=== PATIENT | female | born 1980 | race Caucasian/White ===

== ENCOUNTER 2024-03-12 20:58 | Observation (INO) ==
--- NOTE | 2024-03-12 21:28 | Emergency Department Note ---
Impression & Plan Stroke-like symptom ED Provider Note NAME: BEATRIZ PATE AGE: 43 SEX: F : 1980 ARRIVES VIA: Walk-In INFORMANT: Patient, ED PROVIDER(S): Shad Adair DO CHIEF COMPLAINT: Strokelike symptoms HPI: The patient is a 43-year-old female who presented to the emergency department for strokelike symptoms. The patient states that she was at dinner at approximately 7 PM this evening. She started noticing a tightness and a numbness in her left upper extremity. She also noticed a slight headache on the top of her head. She denies having any chest pain or difficulty breathing. She did note some nausea. She has a strong history of central nervous system issues in the past. She had a stroke during angiogram in the past. She also has a history of an AV malformation in the right internal carotid or aneurysm. She does have a history of hypertension. The patient denies having any recent illnesses or GI bleeding. She denies having any black or tarry stools. ROS: See above HPI for pertinent positives & negatives. A total of 10 systems reviewed and were otherwise negative. PAST MEDICAL HISTORY: See Below PAST SURGICAL HISTORY: See Below FAMILY HISTORY: See Below SOCIAL HISTORY: See Below HOME MEDICATIONS: See Below ALLERGIES: See Below VITALS: See Below PHYSICAL EXAMINATION: GENERAL: Patient is awake alert in no acute distress patient is resting comfortably and showing no signs of anxiety EYES: The conjunctivae are clear. The pupils are round and reactive. EARS, NOSE, MOUTH AND THROAT: The nose is without any evidence of any deformity. NECK: The neck is nontender and supple. RESPIRATORY: Normal respiratory effort is noted there is no evidence of wheezing rhonchi or rales CARDIOVASCULAR: Regular rate and rhythm noted there no murmurs rubs or gallops normal S1 normal S2. GASTROINTESTINAL: The abdomen is soft. Abdomen is nontender. MUSCULOSKELETAL/EXTREMITIES: There is no evidence of gross deformity full range of motion is noted in the hips and shoulders. SKIN: There is no obvious evidence of any rash. There are no petechiae, pallor or cyanosis noted. NEUROLOGIC: Patient is awake alert and oriented x3 strength is symmetric patellar reflexes are 2+ bilaterally. There is no drift in the upper extremities. Director Of [employer] strength was symmetric in both upper extremities. There is no facial droop. Speech was clear. MEDICAL DECISION MAKING: The patient is a 43-year-old female who presented to the emergency department for an evaluation of strokelike symptoms. The patient has a very significant neurologic history which includes cerebral vascular aneurysm as well as an AVM. The patient was treated with surgery in the past. She has a STAFFING CONSULTANT shunt. The patient had a reassuring exam her symptoms were very acute so she was made a stroke alert after my evaluation. I discussed patient's laboratory and radiographic studies with her. I discussed her condition with the [facility] telestroke neurologist. At this time she does not appear to meet any specific criteria for TNK and in fact given her past medical history she would not likely be a good candidate for this medication. She has no large vessel occlusion. She does still has some ongoing symptoms. For this reason I discussed her condition with the on-call [facility] hospitalist. They have agreed to evaluate the patient in the emergency department for further management and disposition. Triage Nursing notes reviewed. Prior medical records reviewed Vital Signs: reviewed and remarkable for initial hypertension. Differential diagnosis: Infection, dehydration, metabolic abnormality, hypo/hyperglycemia, electrolyte disturbance, anemia, hypoxia, cardiac sources, intracerebral event, toxicologic, neurologic, as well as other pathologies. ER treatment provided: See below Diagnostics interpreted by me: ECG: EKG was obtained in the emergency department. My interpretation is sinus tachycardia at 102 bpm. There is no ectopy. There is no acute ST segment abnormalities noted. No previous tracing was available. Cardiac Monitoring: An order was placed for continuous cardiac monitoring. The monitor shows a rate of 83 bpm with sinus rhythm. Laboratory studies: As stated above and show below. Imaging studies: See below. Radiographic imaging was reviewed by myself Consultation(s): I discussed this case with Dr. Taylor who is on-call for the [facility] telestroke neurology group. I discussed this case with Dr. Shirley [facility] ED COURSE: Procedures: none Critical Care: I have personally spent greater than 35 minutes of critical care time in the direct management of this patient. This includes bedside care, interpretation of diagnostic studies, and testing, discussion with consultants, patient, and family members, and other required patient management activities. This 35 minutes is in excess of all separately billable procedures. Past Med/Surg History Problem List (Updated 03/12/24 @ 22:35 by Shad Adair DO) Stroke-like symptom (Acute) Medical History (Updated 03/12/24 @ 22:35 by Shad Adair DO) Cerebral aneurysm Chronic hypertension Right internal carotid artery aneurysm History of arteriovenous malformation (AVM) Social History Smoking Status: Never smoker Feels Safe at Home: Yes Allergies Allergies Allergy/AdvReac Type Severity Reaction Status Date / Time shrimp Allergy Severe LIPS Verified 03/12/24 22:15 SWELLED/RASH ON NECK Home Meds Home Medications Medication Instructions Recorded Confirmed amlodipine 5 mg tablet 5 mg PO DAILY 03/12/24 03/12/24 aspirin 81 mg tablet,delayed 81 mg PO DAILY 03/12/24 03/12/24 release atorvastatin 10 mg tablet 10 mg PO HS 03/12/24 03/12/24 biotin 10 mg tablet 10 mg PO DAILY 03/12/24 03/12/24 bupropion HCl 100 mg tablet,12 hr 100 mg PO DAILY 03/12/24 03/12/24 sustained-release (Wellbutrin SR) collagen,hydrolysate 500 mg-biotin 1 cap PO DAILY 03/12/24 03/12/24 800 mcg-ascorbic acid 50 mg capsule etonogestrel 0.12 mg-ethinyl 1 vag ring vaginal DIRECTED 03/12/24 03/12/24 estradiol 0.015 mg/24 hr vaginal ring (NuvaRing) hydroxyzine HCl 25 mg tablet 25 mg PO QID PRN Anxiety 03/12/24 03/12/24 lacosamide 100 mg tablet 100 mg PO BID 03/12/24 03/12/24 sertraline 25 mg tablet 12.5 mg PO DAILY 03/12/24 03/12/24 Results & Data (ED) Vital Signs Vital Signs - 24 hr 03/12/24 21:01 03/12/24 21:18 03/12/24 21:19 Temperature 36.2 C L Temperature Source Temporal Artery Scan Pulse Rate 87 96 H 91 H Pulse Rate from SpO2 Sensor 93 H Pulse Rhythm Regular Pulse Strength Normal Respiratory Rate 20 Respiratory Effort / Characteristics Non-Labored Spontaneous Respiratory Depth Normal Blood Pressure 166/114 H 165/108 H Blood Pressure Mean 131 127 Blood Pressure Position Sitting Pulse Oximetry 100 98 Oxygen Delivery Method Room Air Sepsis Recent Fever Within 48 Hours No Sepsis New/Unexplained Change in Mental Status N/A Sepsis Action Taken by Nursing No Action Required 03/12/24 22:03 Temperature Temperature Source Pulse Rate 83 Pulse Rate from SpO2 Sensor 81 Pulse Rhythm Pulse Strength Respiratory Rate 19 Respiratory Effort / Characteristics Respiratory Depth Blood Pressure 134/96 Blood Pressure Mean 108 Blood Pressure Position Pulse Oximetry 98 Oxygen Delivery Method Sepsis Recent Fever Within 48 Hours Sepsis New/Unexplained Change in Mental Status Sepsis Action Taken by Half-Way Medications Current Medication List: was personally reviewed by me Laboratory Data Attestation: I reviewed the patient's lab results. 03/12/24 21:16 03/12/24 21:16 Lab Results 03/12/24 03/12/24 03/12/24 Range/Units 21:16 21:21 21:25 WBC 8.74 (4.8-10.8) K/ul RBC 4.70 (4.20-5.40) M/uL Hgb 13.7 (12.0-16.0) g/dl POC Hgb 12.9 (12.0-16.0) g/dl Hct 40.6 (37.0-47.0) % POC Hct 38 (37-47) % MCV 86.4 (80.0-100.0) fL MCH 29.1 (25.0-34.0) pg MCHC 33.7 (32.0-36.0) g/dL RDW Std Deviation 41.2 (36.4-46.3) fL RDW Coeff of Sandy 13.1 (11.5-14.5) % Plt Count 250 (130-400) K/uL MPV 9.6 (9.4-12.4) fL Immature Gran % (Auto) 0.2 % Neut % (Auto) 56.5 % Lymph % (Auto) 31.9 % Pratt % (Auto) 8.6 % Eos % (Auto) 2.3 % Baso % (Auto) 0.5 % Neut # (Auto) 4.94 (1.40-6.50) K/uL Lymph # (Auto) 2.79 (1.20-3.40) K/uL Pratt # (Auto) 0.75 H (0.11-0.59) K/uL Eos # (Auto) 0.20 (0.00-0.50) K/uL Baso # (Auto) 0.04 (0.00-0.20) K/uL Immature Gran # (Auto) 0.02 (0.01-0.20) K/uL PT 9.8 (9.0-12.0) Seconds INR 0.9 (0.9-1.1) APTT 24 (21-31) Seconds PTT Ratio 0.9 POC Sodium 140 (135-144) mmol/L Sodium 139 (136-145) mmol/L POC Potassium 3.5 (3.3-5.0) mmol/L Potassium 3.5 (3.5-5.1) mmol/L POC Chloride 105 (101-112) mmol/L Chloride 104 (98-107) mmol/L Carbon Dioxide 26 (21-32) mmol/L POC Total CO2 26 (24-31) mmol/L Anion Gap 9 (3-11) POC Anion Gap 13.0 L (16-25) mmol/L POC BUN 11 (7-18) mg/dl BUN 13 (6-23) mg/dl Creatinine 0.79 (0.6-1.2) mg/dl POC Creatinine 0.7 (0.6-1.3) mg/dl Est Cr Clr Drug Dosing 92.1 ml/min Est GFR ( Amer) 107.8 ml/min Est GFR (Non-Af Amer) 93.0 ml/min BUN/Creatinine Ratio 16.5 (10-20) Glucose 105 H (70-99(Fasting)) mg/dl POC Glucose 124 H (70-99) mg/dl POC Glucose (other) 103 H (70-99) mg/dl Calcium 9.5 (8.6-10.3) mg/dl POC Ioniz Calcium Deja 1.20 (1.12-1.32) mmol/l Magnesium 1.9 (1.7-2.4) mg/dl Total Bilirubin 0.3 (0.2-1.0) mg/dl AST 18 (13-39) U/L ALT 20 (7-52) U/L Alkaline Phosphatase 55 (34-104) U/L Troponin I High Sens 2.5 (0-14) pg/ml Total Protein 7.7 (6.0-8.3) gm/dl Albumin 4.4 (3.4-5.0) gm/dl Globulin 3.3 (2.5-4.0) gm/dl Albumin/Globulin Ratio 1.3 (0.9-2) HCG, Quant < 1 mIU/ml Administered Medications Discontinued Medications Ioversol (Optiray 320 150ml) 120 ml IV ONCE ONE Stop: 03/12/24 21:29 Last Admin: 03/12/24 21:29 Dose: 120 ml Documented By: JAMSHID Imaging Data Attestation: I personally reviewed and interpreted this imaging study as follows: My Impression: CT of the brain was obtained in the emergency department. My interpretation is no intracranial hemorrhage, STAFFING CONSULTANT shunt was noted, final report below. 1 view chest x-ray was obtained in the emergency department. My interpretation is no free air or definite infiltrate, final report below. Radiologist's Impression: Head CT 03/12/24 21:21 CR Exam(s): CT HEAD Without Contrast EXAM: CT Head Without Intravenous Contrast CLINICAL HISTORY: Reason for exam: neuro deficit, acute stroke suspected. TECHNIQUE: Axial computed tomography images of the head/brain without intravenous contrast. CTDI is 47.66 mGy and DLP is 774.27 mGy-cm. Automated exposure control was utilized for the study. A dose lowering technique was utilized adhering to the principles of ALARA. COMPARISON: No relevant prior studies available. FINDINGS: Brain: There is an approximately 6 cm area of encephalomalacia in the right parietal and occipital lobe with surrounding gliosis consistent with old infarct or surgical resection. No acute large vessel infarct or intracranial hemorrhage is seen. Ventricles: There is a left frontal ventriculostomy extending to the lateral ventricle per the ventricular system is nondilated. Bones/joints: Previous right frontotemporal parietal craniotomy. There is an aneurysm clip at the base of the brain as well as an embolization coil and a metallic stent extending into the proximal posterior cerebral artery on the right. No acute fracture. Soft tissues: Unremarkable. Sinuses: Unremarkable as visualized. No acute sinusitis. Mastoid air cells: Unremarkable as visualized. No mastoid effusion. IMPRESSION: 1. There is an approximately 6 cm area of encephalomalacia in the right parietal and occipital lobe with surrounding gliosis consistent with old infarct or surgical resection. No acute large vessel infarct or intracranial hemorrhage is seen. 2. Previous right frontotemporal parietal craniotomy. There is an aneurysm clip at the base of the brain as well as an adjacent embolization coil and a metallic stent extending into the proximal posterior cerebral artery on the right. Communications: Call Doctor Stroke Electronically signed by: Elliot Ocampo MD 03/12/24 21:48 PM Head CTA 03/12/24 21:21 CR Exam(s): CTA HEAD With Contrast IV Amt: 120ML OPITRAY 320 EXAM: CT Angiography Head With Intravenous Contrast CLINICAL HISTORY: Reason for exam: neuro deficit, acute stroke suspected. TECHNIQUE: Axial computed tomographic angiography images of the head with intravenous contrast. CTDI is 10.38 mGy and DLP is 5.19 mGy-cm. Automated exposure control was utilized for the study. A dose lowering technique was utilized adhering to the principles of ALARA. MIP reconstructed images were created and reviewed. CONTRAST: Patient received 120ML OPTIRAY 320 of IV contrast COMPARISON: No relevant prior studies available. FINDINGS: Right internal carotid artery: Embolization coils adjacent to the distal right internal carotid artery. There is an aneurysm clip adjacent to the distal right internal carotid artery and anterior communicating artery. Right anterior cerebral artery: See above. Right middle cerebral artery: Unremarkable. No occlusion or significant stenosis. No aneurysm. Right posterior cerebral artery: Metallic stent in the proximal right posterior cerebral artery. The vessel is obscured and likely chronically occluded. No aneurysm. Right vertebral artery: Unremarkable as visualized. Left internal carotid artery: No acute findings. Intracranial segment is patent with no significant stenosis. No aneurysm. Left anterior cerebral artery: Unremarkable. No occlusion or significant stenosis. No aneurysm. Left middle cerebral artery: Unremarkable. No occlusion or significant stenosis. No aneurysm. Left posterior cerebral artery: Unremarkable. No occlusion or significant stenosis. No aneurysm. Left vertebral artery: Unremarkable as visualized. Basilar artery: Unremarkable. No occlusion or significant stenosis. No aneurysm. Bones/joints: Previous right-sided craniotomy. IMPRESSION: 1. Embolization coils adjacent to the distal right internal carotid artery. No residual or recurrent aneurysm is seen. 2. There is an aneurysm clip adjacent to the distal right internal carotid artery and anterior communicating artery. 3. Previous right-sided craniotomy. 4. Metallic stent in the proximal right posterior cerebral artery. The vessel is obscured and likely chronically occluded. No acute appearing large vessel occlusion is identified. Communications: Call Doctor Stroke Electronically signed by: Elliot Ocampo MD 03/12/24 21:59 PM Neck CTA 03/12/24 21:21 CR Exam(s): CTA NECK With Contrast IV Amt: 120ML OPTIRAY 320 EXAM: CT Angiography Neck With Intravenous Contrast CLINICAL HISTORY: Reason for exam: neuro deficit, acute stroke suspected. TECHNIQUE: Routine carotid CT angiography protocol was performed with intravenous contrast. NASCET criteria using the distal ICAs for comparison were used for evaluation of stenoses. CTDI is 12.29 mGy and DLP is 433.9 mGy-cm. Automated exposure control was utilized for the study. A dose lowering technique was utilized adhering to the principles of ALARA. MIP reconstructed images were created and reviewed. CONTRAST: Patient received 120ML OPTIRAY 320 of IV contrast COMPARISON: None. FINDINGS: VASCULATURE: Right common carotid artery: Unremarkable. No occlusion or significant stenosis. No dissection. Right internal carotid artery: Unremarkable. Extracranial segment is patent with no occlusion or significant stenosis. No dissection. Right external carotid artery: Unremarkable. No occlusion. Right vertebral artery: Unremarkable. No occlusion or significant stenosis. No dissection. Left common carotid artery: Unremarkable. No occlusion or significant stenosis. No dissection. Left internal carotid artery: Trace amount of noncalcified plaque in the left carotid bulb with less than 20% stenosis. No dissection. Left external carotid artery: Unremarkable. No occlusion. Left vertebral artery: Unremarkable. No occlusion or significant stenosis. No dissection. NECK: Bones/joints: Unremarkable. No acute fracture. Soft tissues: Unremarkable. Lung apices: Clear. CAROTID STENOSIS REFERENCE USING NASCET CRITERIA: % ICA stenosis = (1 - narrowest ICA diameter/diameter of distal cervical ICA) x 100. Mild - <50% stenosis. Moderate - 50-69% stenosis. Severe - 70-94% stenosis. Near occlusion - 95-99% stenosis. Occluded - 100% stenosis. IMPRESSION: No acute findings in the arteries of the neck. Communications: Call Doctor Stroke Electronically signed by: Elliot Ocampo MD 03/12/24 21:55 PM Discharge Plan Visit Data Chief Complaint: TIA Symptoms Stated Complaint: TINGLING IN LT ARM/LT SIDE FACE, DISORIENTED ED Provider: Shad Adair Discharge Problem: Stroke-like symptom Patient Disposition: Being Evaluated by Hospitalist Forms Stand Alone Forms: My [facility] Prescriptions Prescriptions: No Action biotin 10 mg Tablet 10 mg PO DAILY atorvastatin 10 mg Tablet 10 mg PO HS amlodipine 5 mg Tablet 5 mg PO DAILY aspirin 81 mg Tablet,Delayed Release (Dr/Ec) 81 mg PO DAILY bupropion HCl [Wellbutrin SR] 100 mg Tablet Sustained-Release 12 Hr 100 mg PO DAILY sertraline 25 mg Tablet 12.5 mg PO DAILY etonogestrel-ethinyl estradiol [NuvaRing] 0.12-0.015 mg/24 hr Ring 1 vag ring VAGINAL DIRECTED fkzpvlbg-[id number]-[id number] acid 500 mg-800 mcg- 50 mg Capsule 1 cap PO DAILY lacosamide 100 mg Tablet 100 mg PO BID hydroxyzine HCl 25 mg tablet 25 mg PO QID PRN (Reason: Anxiety) Rx Instructions: PER PT "USUALLY TAKE AT HS EVERY NIGHT". Referrals Referrals: PCP,NO [Physician] -
[2024-03-12] MEDS: OPTIRAY 320 150ml IV ONE (21:29)
[2024-03-12 21:37] LABS: Basophils # (auto) 0.04 K/uL (0.00-0.20); Basophils % (auto) 0.5 %; Eosinophils % (auto) 2.3 %; Hematocrit (blood only) 40.6 % (37.0-47.0); Hemoglobin 13.7 g/dl (12.0-16.0); Immature Granulocytes # (auto) 0.02 K/uL (0.01-0.20); Immature Granulocytes % (auto) 0.2 %; Lymphocytes # (auto) 2.79 K/uL (1.20-3.40); Lymphocytes % (auto) 31.9 %; Mean Corpuscular Hemoglobin 29.1 pg (25.0-34.0); Mean Corpuscular Hgb Conc 33.7 g/dL (32.0-36.0); Mean Corpuscular Volume 86.4 fL (80.0-100.0); Mean Platelet Volume 9.6 fL (9.4-12.4); Monocytes # (auto) 0.75 K/uL (0.11-0.59); Monocytes % (auto) 8.6 %; Neutrophils # (auto) 4.94 K/uL (1.40-6.50); Neutrophils % (auto) 56.5 %; Platelet Count 250 K/uL (130-400); RDW Coefficient of Variation 13.1 % (11.5-14.5); RDW Standard Deviation 41.2 fL (36.4-46.3); White Blood Count 8.74 K/ul (4.8-10.8)
--- NOTE | 2024-03-12 21:49 | CT Scan Report ---
Exam(s): CT HEAD Without Contrast EXAM: CT Head Without Intravenous Contrast CLINICAL HISTORY: Reason for exam: neuro deficit, acute stroke suspected. TECHNIQUE: Axial computed tomography images of the head/brain without intravenous contrast. CTDI is 47.66 mGy and DLP is 774.27 mGy-cm. Automated exposure control was utilized for the study. A dose lowering technique was utilized adhering to the principles of ALARA. COMPARISON: No relevant prior studies available. FINDINGS: Brain: There is an approximately 6 cm area of encephalomalacia in the right parietal and occipital lobe with surrounding gliosis consistent with old infarct or surgical resection. No acute large vessel infarct or intracranial hemorrhage is seen. Ventricles: There is a left frontal ventriculostomy extending to the lateral ventricle per the ventricular system is nondilated. Bones/joints: Previous right frontotemporal parietal craniotomy. There is an aneurysm clip at the base of the brain as well as an embolization coil and a metallic stent extending into the proximal posterior cerebral artery on the right. No acute fracture. Soft tissues: Unremarkable. Sinuses: Unremarkable as visualized. No acute sinusitis. Mastoid air cells: Unremarkable as visualized. No mastoid effusion. IMPRESSION: 1. There is an approximately 6 cm area of encephalomalacia in the right parietal and occipital lobe with surrounding gliosis consistent with old infarct or surgical resection. No acute large vessel infarct or intracranial hemorrhage is seen. 2. Previous right frontotemporal parietal craniotomy. There is an aneurysm clip at the base of the brain as well as an adjacent embolization coil and a metallic stent extending into the proximal posterior cerebral artery on the right. Communications: Call Doctor Stroke Electronically signed by: Elliot Ocampo MD 03/12/24 21:48 PM
[2024-03-12 21:50] LABS: Albumin Globulin Ratio 1.3 (0.9-2); Albumin Level 4.4 gm/dl (3.4-5.0); Bilirubin,Total 0.3 mg/dl (0.2-1.0); Calcium 9.5 mg/dl (8.6-10.3); Globulin 3.3 gm/dl (2.5-4.0); Magnesium 1.9 mg/dl (1.7-2.4); Potassium 3.5 mmol/L (3.5-5.1); Total Protein 7.7 gm/dl (6.0-8.3)
[2024-03-12 21:57] LABS: Troponin I High Sensitivity 2.5 pg/ml (0-14)
--- NOTE | 2024-03-12 21:57 | CT Scan Report ---
Exam(s): CTA NECK With Contrast IV Amt: 120ML OPTIRAY 320 EXAM: CT Angiography Neck With Intravenous Contrast CLINICAL HISTORY: Reason for exam: neuro deficit, acute stroke suspected. TECHNIQUE: Routine carotid CT angiography protocol was performed with intravenous contrast. NASCET criteria using the distal ICAs for comparison were used for evaluation of stenoses. CTDI is 12.29 mGy and DLP is 433.9 mGy-cm. Automated exposure control was utilized for the study. A dose lowering technique was utilized adhering to the principles of ALARA. MIP reconstructed images were created and reviewed. CONTRAST: Patient received 120ML OPTIRAY 320 of IV contrast COMPARISON: None. FINDINGS: VASCULATURE: Right common carotid artery: Unremarkable. No occlusion or significant stenosis. No dissection. Right internal carotid artery: Unremarkable. Extracranial segment is patent with no occlusion or significant stenosis. No dissection. Right external carotid artery: Unremarkable. No occlusion. Right vertebral artery: Unremarkable. No occlusion or significant stenosis. No dissection. Left common carotid artery: Unremarkable. No occlusion or significant stenosis. No dissection. Left internal carotid artery: Trace amount of noncalcified plaque in the left carotid bulb with less than 20% stenosis. No dissection. Left external carotid artery: Unremarkable. No occlusion. Left vertebral artery: Unremarkable. No occlusion or significant stenosis. No dissection. NECK: Bones/joints: Unremarkable. No acute fracture. Soft tissues: Unremarkable. Lung apices: Clear. CAROTID STENOSIS REFERENCE USING NASCET CRITERIA: % ICA stenosis = (1 - narrowest ICA diameter/diameter of distal cervical ICA) x 100. Mild - <50% stenosis. Moderate - 50-69% stenosis. Severe - 70-94% stenosis. Near occlusion - 95-99% stenosis. Occluded - 100% stenosis. IMPRESSION: No acute findings in the arteries of the neck. Communications: Call Doctor Stroke Electronically signed by: Elliot Ocampo MD 03/12/24 21:55 PM
--- NOTE | 2024-03-12 22:00 | CT Scan Report ---
Exam(s): CTA HEAD With Contrast IV Amt: 120ML OPITRAY 320 EXAM: CT Angiography Head With Intravenous Contrast CLINICAL HISTORY: Reason for exam: neuro deficit, acute stroke suspected. TECHNIQUE: Axial computed tomographic angiography images of the head with intravenous contrast. CTDI is 10.38 mGy and DLP is 5.19 mGy-cm. Automated exposure control was utilized for the study. A dose lowering technique was utilized adhering to the principles of ALARA. MIP reconstructed images were created and reviewed. CONTRAST: Patient received 120ML OPTIRAY 320 of IV contrast COMPARISON: No relevant prior studies available. FINDINGS: Right internal carotid artery: Embolization coils adjacent to the distal right internal carotid artery. There is an aneurysm clip adjacent to the distal right internal carotid artery and anterior communicating artery. Right anterior cerebral artery: See above. Right middle cerebral artery: Unremarkable. No occlusion or significant stenosis. No aneurysm. Right posterior cerebral artery: Metallic stent in the proximal right posterior cerebral artery. The vessel is obscured and likely chronically occluded. No aneurysm. Right vertebral artery: Unremarkable as visualized. Left internal carotid artery: No acute findings. Intracranial segment is patent with no significant stenosis. No aneurysm. Left anterior cerebral artery: Unremarkable. No occlusion or significant stenosis. No aneurysm. Left middle cerebral artery: Unremarkable. No occlusion or significant stenosis. No aneurysm. Left posterior cerebral artery: Unremarkable. No occlusion or significant stenosis. No aneurysm. Left vertebral artery: Unremarkable as visualized. Basilar artery: Unremarkable. No occlusion or significant stenosis. No aneurysm. Bones/joints: Previous right-sided craniotomy. IMPRESSION: 1. Embolization coils adjacent to the distal right internal carotid artery. No residual or recurrent aneurysm is seen. 2. There is an aneurysm clip adjacent to the distal right internal carotid artery and anterior communicating artery. 3. Previous right-sided craniotomy. 4. Metallic stent in the proximal right posterior cerebral artery. The vessel is obscured and likely chronically occluded. No acute appearing large vessel occlusion is identified. Communications: Call Doctor Stroke Electronically signed by: Elliot Ocampo MD 03/12/24 21:59 PM
[2024-03-12 22:03] LABS: iSTAT Creatinine 0.7 mg/dl (0.6-1.3); iSTAT Hemoglobin 12.9 g/dl (12.0-16.0); iSTAT Ionized Calcium 1.2 mmol/l (1.12-1.32); iSTAT Potassium 3.5 mmol/L (3.3-5.0)
[2024-03-12 22:14] LABS: INR 0.9 (0.9-1.1); Partial Thromboplastin Ratio 0.9; Partial Thromboplastin Time 24 Seconds (21-31); Prothrombin Time 9.8 Seconds (9.0-12.0)
[2024-03-12 22:53] LABS: BUN Creatinine Ratio 16.5 (10-20); Creatinine Clr Calc Pharmacy 92.1 ml/min; Est GFR (African American) 107.8 ml/min
--- NOTE | 2024-03-13 00:10 | History & Physical Report ---
Date of Service March 12, 2024 Assessment & Plan (1) Stroke-like symptom: Plan: 43-year-old female with past medical history significant for right internal carotid artery aneurysm, chronic hypertension, brain aneurysm, history of seizures, presents with strokelike symptoms. Around 7 PM when she was coming from dinner she noticed some numbness in the Left side of face and left upper extremity. Patient was stroke alert. As symptoms are improving and as has history of aneurysm she was deemed not a TNK candidate. Has mild headache and dizziness. No runny nose or sore throat. No cough. No fever. No difficulty swallowing. Denies any chest pain.Initially was short of breath but currently resolved. Currently no nausea. No abdominal pain. Normal bowel and bladder movements. Ambulating okay per patient. Hemodynamics are okay. 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 She also underwent coiling of a ruptured right posterior communicating aneurysm, flow diversion of the right P1 aneurysm and surgery for clipping of the right anterior communicating aneurysm. She also underwent angiogram and the procedure was completed with postprocedure stroke. She used to follow-up with [facility] but she moved out of the area and current following with [facility] as per patient. Patient states recently in December she had MRI scan. She wants to limit radiation exposure. Patient and her wanted to wait and see if her symptoms completely resolves .If symptoms resolves they don't want MRI scan. If symptoms persist they are okay to get MRI scan. She als o has Shunt and they want to get an x-ray before getting the MRI scan. Strokelike symptom Has numbness in the left side of the face and left upper extremity improving CTA head and neck and CT head chronic findings patient states he recently had MRI scan of the head and want to limit radiation and want to wait and see if her symptoms resolve before deciding about the MRI scan continue home statin and aspirin stroke workup with echo, telemonitoring and neurochecks speech and PT OT evaluation neuroconsult in a.m. for further recommendation close monitor hypertension on amlodipine will reduce dose for now for permissive htn we will monitor seizures on lacosamide anxiety/depression continue home medications DVT prophylaxis SCDs disposition telemetry History of Present Illness Chief Complaint: strokelike symptoms Primary Care Provider: NO PCP 43-year-old female with past medical history significant for right internal carotid artery aneurysm, chronic hypertension, brain aneurysm, history of se izures, presents with strokelike symptoms. Around 7 PM when she was coming from dinner she noticed some numbness in the Left side of face and left upper extremity. Patient was stroke alert. As symptoms are improving and as has history of aneurysm she was deemed not a TNK candidate. Has mild headache and dizziness. No runny nose or sore throat. No cough. No fever. No difficulty swallowing. Denies any chest pain.Initially was short of breath but currently resolved. Currently no nausea. No abdominal pain. Normal bowel and bladder movements. Ambulating okay per patient. Hemodynamics are okay. 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 She also underwent coiling of a ruptured right posterior communicating aneurysm, flow diversion of the right P1 aneurysm and surgery for clipping of the right anterior communicating aneurysm. She also underwent angiogram and the procedure was completed with postprocedure stroke. She used to follow-up with [facility] but she moved out of the area and current following with [facility] as per patient. Patient states recently in December she had MRI scan. She wants to limit radiation exposure. Patient and her wanted to wait and see if her symptoms completely resolves .If symptoms resolves they don't want MRI scan. If symptoms persist they are okay to get MRI scan. She also has Shunt and they want to get an x-ray before getting the MRI scan. past medical history. As mentioned above past surgical history. Craniotomy for complex intracranial aneurysm. Bilateral internal carotid artery catheter placement. Cerebral AVM treated with gamma knife. S/p coiling of the right ICA aneurysm in 2014. craniotomy evaluation of subdural hematoma in 2019. 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 Spinal fluid tap for drainage and April 2020. Vertebral artery catheter placement. Social history.'s states smokes socially. Alcohol socially. Family history. Mother has hypertension. Father has diabetes. Grandmother had ovarian cancer. Maternal aunt had brain aneurysm. Allergies Allergy/AdvReac Type Severity Reaction Status Date / Time shrimp Allergy Severe LIPS Verified 03/12/24 22:15 SWELLED/RASH ON NECK Home Medications Medication Instructions Recorded Confirmed Type amlodipine 5 mg tablet 5 mg PO DAILY 03/12/24 03/12/24 History aspirin 81 mg tablet,delayed 81 mg PO DAILY 03/12/24 03/12/24 History release atorvastatin 10 mg tablet 10 mg PO HS 03/12/24 03/12/24 History biotin 10 mg tablet 10 mg PO DAILY 03/12/24 03/12/24 History bupropion HCl 100 mg tablet,12 hr 100 mg PO DAILY 03/12/24 03/12/24 History sustained-release (Wellbutrin SR) collagen,hydrolysate 500 mg-biotin 1 cap PO DAILY 03/12/24 03/12/24 History 800 mcg-ascorbic acid 50 mg capsule etonogestrel 0.12 mg-ethinyl 1 vag ring vaginal DIRECTED 03/12/24 03/12/24 History estradiol 0.015 mg/24 hr vaginal ring (NuvaRing) hydroxyzine HCl 25 mg tablet 25 mg PO QID PRN Anxiety 03/12/24 03/12/24 History lacosamide 100 mg tablet 100 mg PO BID 03/12/24 03/12/24 History sertraline 25 mg tablet 12.5 mg PO DAILY 03/12/24 03/12/24 History Past Med/Surg History Problem List (Updated 03/12/24 @ 22:35 by Shad Adair DO) Stroke-like symptom (Acute) Medical History (Updated 03/12/24 @ 22:35 by Shad Adair DO) Cerebral aneurysm Chronic hypertension Right internal carotid artery aneurysm History of arteriovenous malformation (AVM) Social History Smoking Status: Current every day smoker Tobacco Type: Cigarettes Second Hand Exposure: No; Do You Dip or Chew Tobacco: No; Tobacco Cessation Education Requested by Patient: No Hx Alcohol Use: Yes Alcohol type: beer Hx Substance Use: No Preferred Language: Khmer Assembler Skylights Required: No Beliefs That Will Affect Care: None Current Living Situation: Family Other Information That Helps Us Care for You: No Feels Safe at Home: Yes Safety Concerns: Feels Safe At This Time Assistive Devices: None Review of Systems Review of Systems: All systems reviewed & are unremarkable except as noted in HPI & below Physical Exam Physical Exam: General- Not in distress Head- atraumatic Eyes- PERRL, EOMI. ENT- oropharynx clear Neck- supple, no JVD. Lungs- clear to auscultation no wheezing or crackles. Heart- regular rate and rhythm; no murmur, no gallop. Abdomen- normal bowel sounds, soft, nontender, no distension. Extremities- no pretibial edema, no erythema seen Neuro- alert, oriented PERRL, EOMI; no facial palsy; no dysarthria; motor 5/5 bilaterally; no pronator drift, normal heel to tomlin test, sensations intact, position sense intact. Skin- warm & dry Results & Data Results & Data Vital Signs (Past 12 Hours) Vital Signs Temp Pulse Resp BP Pulse Ox O2 Del Method 03/12/24 22:03 83 19 134/96 98 03/12/24 21:19 91 H 03/12/24 21:18 96 H 165/108 H 98 03/12/24 21:01 36.2 C L 87 20 166/114 H 100 Room Air Diagnostic Findings Laboratory Results WBC 8.74 K/ul (4.8-10.8) 03/12/24 21:16 RBC 4.70 M/uL (4.20-5.40) 03/12/24 21:16 Hgb 13.7 g/dl (12.0-16.0) 03/12/24 21:16 POC Hgb 12.9 g/dl (12.0-16.0) 03/12/24 21:25 Hct 40.6 % (37.0-47.0) 03/12/24 21:16 POC Hct 38 % (37-47) 03/12/24 21:25 MCV 86.4 fL (80.0-100.0) 03/12/24 21:16 MCH 29.1 pg (25.0-34.0) 03/12/24 21:16 MCHC 33.7 g/dL (32.0-36.0) 03/12/24 21:16 RDW Std Deviation 41.2 fL (36.4-46.3) 03/12/24 21:16 RDW Coeff of Sandy 13.1 % (11.5-14.5) 03/12/24 21:16 Plt Count 250 K/uL (130-400) 03/12/24 21:16 MPV 9.6 fL (9.4-12.4) 03/12/24 21:16 Immature Gran % (Auto) 0.2 % 03/12/24 21:16 Neut % (Auto) 56.5 % 03/12/24 21:16 Lymph % (Auto) 31.9 % 03/12/24 21:16 Merrick % (Auto) 8.6 % 03/12/24 21:16 Eos % (Auto) 2.3 % 03/12/24 21:16 Baso % (Auto) 0.5 % 03/12/24 21:16 Neut # (Auto) 4.94 K/uL (1.40-6.50) 03/12/24 21:16 Lymph # (Auto) 2.79 K/uL (1.20-3.40) 03/12/24 21:16 Merrick # (Auto) 0.75 K/uL (0.11-0.59) H 03/12/24 21:16 Eos # (Auto) 0.20 K/uL (0.00-0.50) 03/12/24 21:16 Baso # (Auto) 0.04 K/uL (0.00-0.20) 03/12/24 21:16 Immature Gran # (Auto) 0.02 K/uL (0.01-0.20) 03/12/24 21:16 PT 9.8 Seconds (9.0-12.0) 03/12/24 21:16 INR 0.9 (0.9-1.1) 03/12/24 21:16 APTT 24 Seconds (21-31) 03/12/24 21:16 PTT Ratio 0.9 03/12/24 21:16 POC Sodium 140 mmol/L (135-144) 03/12/24 21:25 Sodium 139 mmol/L (136-145) 03/12/24 21:16 POC Potassium 3.5 mmol/L (3.3-5.0) 03/12/24 21:25 Potassium 3.5 mmol/L (3.5-5.1) 03/12/24 21:16 POC Chloride 105 mmol/L (101-112) 03/12/24 21:25 Chloride 104 mmol/L (98-107) 03/12/24 21:16 Carbon Dioxide 26 mmol/L (21-32) 03/12/24 21:16 POC Total CO2 26 mmol/L (24-31) 03/12/24 21:25 Anion Gap 9 (3-11) 03/12/24 21:16 POC Anion Gap 13.0 mmol/L (16-25) L 03/12/24 21:25 POC BUN 11 mg/dl (7-18) 03/12/24 21:25 BUN 13 mg/dl (6-23) 03/12/24 21:16 Creatinine 0.79 mg/dl (0.6-1.2) 03/12/24 21:16 POC Creatinine 0.7 mg/dl (0.6-1.3) 03/12/24 21:25 Est Cr Clr Drug Dosing 92.1 ml/min 03/12/24 21:16 Est GFR ( Amer) 107.8 ml/min 03/12/24 21:16 Est GFR (Non-Af Amer) 93.0 ml/min 03/12/24 21:16 BUN/Creatinine Ratio 16.5 (10-20) 03/12/24 21:16 Glucose 105 mg/dl (70-99(Fasting)) H 03/12/24 21:16 POC Glucose 124 mg/dl (70-99) H 03/12/24 21:21 POC Glucose (other) 103 mg/dl (70-99) H 03/12/24 21:25 Calcium 9.5 mg/dl (8.6-10.3) 03/12/24 21:16 POC Ioniz Calcium Djea 1.20 mmol/l (1.12-1.32) 03/12/24 21:25 Magnesium 1.9 mg/dl (1.7-2.4) 03/12/24 21:16 Total Bilirubin 0.3 mg/dl (0.2-1.0) 03/12/24 21:16 AST 18 U/L (13-39) 03/12/24 21:16 ALT 20 U/L (7-52) 03/12/24 21:16 Alkaline Phosphatase 55 U/L (34-104) 03/12/24 21:16 Troponin I High Sens 2.5 pg/ml (0-14) 03/12/24 21:16 Total Protein 7.7 gm/dl (6.0-8.3) 03/12/24 21:16 Albumin 4.4 gm/dl (3.4-5.0) 03/12/24 21:16 Globulin 3.3 gm/dl (2.5-4.0) 03/12/24 21:16 Albumin/Globulin Ratio 1.3 (0.9-2) 03/12/24 21:16 HCG, Quant < 1 mIU/ml 03/12/24 21:[address] 03/12/24 21:21 CR Exam(s): CT HEAD Without Contrast EXAM: CT Head Without Intravenous Contrast CLINICAL HISTORY: Reason for exam: neuro deficit, acute stroke suspected. TECHNIQUE: Axial computed tomography images of the head/brain without intravenous contrast. CTDI is 47.66 mGy and DLP is 774.27 mGy-cm. Automated exposure control was utilized for the study. A dose lowering technique was utilized adhering to the principles of ALARA. COMPARISON: No relevant prior studies available. FINDINGS: Brain: There is an approximately 6 cm area of encephalomalacia in the right parietal and occipital lobe with surrounding gliosis consistent with old infarct or surgical resection. No acute large vessel infarct or intracranial hemorrhage is seen. Ventricles: There is a left frontal ventriculostomy extending to the lateral ventricle per the ventricular system is nondilated. Bones/joints: Previous right frontotemporal parietal craniotomy. There is an aneurysm clip at the base of the brain as well as an embolization coil and a metallic stent extending into the proximal posterior cerebral artery on the right. No acute fracture. Soft tissues: Unremarkable. Sinuses: Unremarkable as visualized. No acute sinusitis. Mastoid air cells: Unremarkable as visualized. No mastoid effusion. IMPRESSION: 1. There is an approximately 6 cm area of encephalomalacia in the right parietal and occipital lobe with surrounding gliosis consistent with old infarct or surgical resection. No acute large vessel infarct or intracranial hemorrhage is seen. 2. Previous right frontotemporal parietal craniotomy. There is an aneurysm clip at the base of the brain as well as an adjacent embolization coil and a metallic stent extending into the proximal posterior cerebral artery on the right. Communications: Call Doctor Stroke Electronically signed by: Elliot Ocampo MD 03/12/24 21:48 PM Head CTA 03/12/24 21:21 CR Exam(s): CTA HEAD With Contrast IV Amt: 120ML OPITRAY 320 EXAM: CT Angiography Head With Intravenous Contrast CLINICAL HISTORY: Reason for exam: neuro deficit, acute stroke suspected. TECHNIQUE: Axial computed tomographic angiography images of the head with intravenous contrast. CTDI is 10.38 mGy and DLP is 5.19 mGy-cm. Automated exposure control was utilized for the study. A dose lowering technique was utilized adhering to the principles of ALARA. MIP reconstructed images were created and reviewed. CONTRAST: Patient received 120ML OPTIRAY 320 of IV contrast COMPARISON: No relevant prior studies available. FINDINGS: Right internal carotid artery: Embolization coils adjacent to the distal right internal carotid artery. There is an aneurysm clip adjacent to the distal right internal carotid artery and anterior communicating artery. Right anterior cerebral artery: See above. Right middle cerebral artery: Unremarkable. No occlusion or significant stenosis. No aneurysm. Right posterior cerebral artery: Metallic stent in the proximal right posterior cerebral artery. The vessel is obscured and likely chronically occluded. No aneurysm. Right vertebral artery: Unremarkable as visualized. Left internal carotid artery: No acute findings. Intracranial segment is patent with no significant stenosis. No aneurysm. Left anterior cerebral artery: Unremarkable. No occlusion or significant stenosis. No aneurysm. Left middle cerebral artery: Unremarkable. No occlusion or significant stenosis. No aneurysm. Left posterior cerebral artery: Unremarkable. No occlusion or significant stenosis. No aneurysm. Left vertebral artery: Unremarkable as visualized. Basilar artery: Unremarkable. No occlusion or significant stenosis. No aneurysm. Bones/joints: Previous right-sided craniotomy. IMPRESSION: 1. Embolization coils adjacent to the distal right internal carotid artery. No residual or recurrent aneurysm is seen. 2. There is an aneurysm clip adjacent to the distal right internal carotid artery and anterior communicating artery. 3. Previous right-sided craniotomy. 4. Metallic stent in the proximal right posterior cerebral artery. The vessel is obscured and likely chronically occluded. No acute appearing large vessel occlusion is identified. Communications: Call Doctor Stroke Electronically signed by: Elliot Ocampo MD 03/12/24 21:59 PM Neck CTA 03/12/24 21:21 CR Exam(s): CTA NECK With Contrast IV Amt: 120ML OPTIRAY 320 EXAM: CT Angiography Neck With Intravenous Contrast CLINICAL HISTORY: Reason for exam: neuro deficit, acute stroke suspected. TECHNIQUE: Routine carotid CT angiography protocol was performed with intravenous contrast. NASCET criteria using the distal ICAs for comparison were used for evaluation of stenoses. CTDI is 12.29 mGy and DLP is 433.9 mGy-cm. Automated exposure control was utilized for the study. A dose lowering technique was utilized adhering to the principles of ALARA. MIP reconstructed images were created and reviewed. CONTRAST: Patient received 120ML OPTIRAY 320 of IV contrast COMPARISON: None. FINDINGS: VASCULATURE: Right common carotid artery: Unremarkable. No occlusion or significant stenosis. No dissection. Right internal carotid artery: Unremarkable. Extracranial segment is patent with no occlusion or significant stenosis. No dissection. Right external carotid artery: Unremarkable. No occlusion. Right vertebral artery: Unremarkable. No occlusion or significant stenosis. No dissection. Left common carotid artery: Unremarkable. No occlusion or significant stenosis. No dissection. Left internal carotid artery: Trace amount of noncalcified plaque in the left carotid bulb with less than 20% stenosis. No dissection. Left external carotid artery: Unremarkable. No occlusion. Left vertebral artery: Unremarkable. No occlusion or significant stenosis. No dissection. NECK: Bones/joints: Unremarkable. No acute fracture. Soft tissues: Unremarkable. Lung apices: Clear. CAROTID STENOSIS REFERENCE USING NASCET CRITERIA: % ICA stenosis = (1 - narrowest ICA diameter/diameter of distal cervical ICA) x 100. Mild - <50% stenosis. Moderate - 50-69% stenosis. Severe - 70-94% stenosis. Near occlusion - 95-99% stenosis. Occluded - 100% stenosis. IMPRESSION: No acute findings in the arteries of the neck. Communications: Call Doctor Stroke Electronically signed by: Elliot Ocampo MD 03/12/24 21:55 PM ECG Additional Comments: ECG. Sinus tachycardia rate of 102. No acute ST changes seen. Code Status & VTE Plan VTE Prophylaxis Plan VTE Prophylaxis will be ordered: Yes
[2024-03-13] MEDS ORDERED: POLYETHYLENE (MIRALAX) 17 GM PACK PO PRN (00:32)
[2024-03-13] MEDS ORDERED: ACETAMINOPHEN 325 MG TAB PO PRN (00:32)
[2024-03-13] MEDS ORDERED: PHARMACIST DISCHARGE MED REC CONSULT PRN (00:32)
[2024-03-13] MEDS ORDERED: NITROGLYCERIN SL 0.4 MG/TAB TAB SL PRN (00:32)
[2024-03-13] MEDS ORDERED: hydrOXYzine HCl 25 MG TAB PO PRN (00:32)
--- OUTSIDE RECORDS SUMMARY | 2024-03-13 00:36 | External Medical Summary | Continuity of Care Document ---
Author Name Unknown [facility] [address] [facility] [facility] [address] [id number] Care Team Providers Care Budget Consultant Name Role Phone Tracey Swartz Primary Care Physician [phone] [id number] Date(s[facility] 01/20/24 - 01/20/24 [facility] GILES STAUFFER [address] [facility] [facility] [address] [phone] Discharge Disposition: Home or Self Care Attending Physician: FLORINA Quinones Heather Referring Physician: FLORINA Quinones Heather Allergies, Adverse Reactions, Alerts No Known Medication Allergies Substance Reaction Severity Status shrimp Hives, Rash Active Medications amLODIPine 5 mg oral tablet Start: 06/03/21 14:19:00 EDT, 1 tab, PO, Daily Start Date: 06/03/21 Status: Ordered aspirin 81 mg oral delayed release tablet Start: 02/26/23 10:48:00 EDT, 1 tab, PO, Daily Start Date: 02/26/23 Status: Ordered atorvastatin 10 mg oral tablet Start: 07/07/23 11:52:00 EDT, 1 tab, PO, Daily, Disp# 30 tab, Refills: 4, [id number] Start Date: 07/07/23 Status: Ordered hydrOXYzine hydrochloride 25 mg oral tablet Start: 01/18/24 13:52:00 EDT, 1 tab, PO, qid, Disp# 120 tab, Refills: 4, PRN: as needed for anxiety, [facility]acy: [facility] #[id number] Start Date: 01/18/24 Stop Date: 06/16/24 Status: Ordered lacosamide 100 mg oral tablet Start: 12/09/23 9:31:00 EST, 1 tab, PO, bid, Disp# 60 tab, Refills: 5, [facility]acy: [facility] #[id number] Start Date: 12/09/23 Status: Ordered LORazepam 0.5 mg oral tablet Start: 12/07/23 14:39:00 EST, 1 tab, PO, Daily, Disp# 14 tab, take 1/2 - 1 tablet as needed for panic attacks, PRN: as needed for anxiety, [id number] Start Date: 12/07/23 Stop Date: 12/21/23 Status: Ordered NuvaRing 0.120 mg-0.015 mg/24 hours vaginal ring Start: 01/09/23 16:53:00 EDT, 1 each, INSERT 1 EACH INTO THE VAGINA EVERY 28 DAYS. Start Date: 01/09/23 Status: Ordered senna Start: 01/09/23 16:52:00 EDT, PO, 2 Unknown, 1 Refill(s), Take 2 tablets by mouth daily as needed (constipation). Start Date: 01/09/23 Status: Ordered sertraline 25 mg oral tablet Start: 01/18/24 13:52:00 EDT, 1 tab, PO, Daily, Disp# 30 tab, Refills: 4, [facility]: [facility] #[id number] Start Date: 01/18/24 Stop Date: 06/16/24 Status: Ordered Tylenol 325 mg oral tablet Start: 01/11/23 13:58:00 EDT, 2 tab, PO, q4h, PRN: fever/mild pain (1-3) Start Date: 01/11/23 Status: Ordered Zofran ODT 4 mg oral tablet, disintegrating Start: 01/11/23 17:11:00 EDT, 1 tab, PO, q6h, Disp# 15 tab, PRN: as needed for nausea/vomiting, [facility]acy: [facility] #[id number] Start Date: 01/11/23 Status: Ordered Problem List Condition Confirmation Course Effective Dates Status Health St atus Informant 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 Generalized anxiety disorder with panic attacks Confirmed Active 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 Active Hypertension Confirmed Active Brain aneurysm Confirmed Active Menorrhagia Confirmed 11/07/22 Active Moderate depressive disorder Confirmed Active Scar of scapular region Confirmed Active Seizure Confirmed Active Solar lentigo Confirmed Active Emotional stress reaction Confirmed Active Diagnosis Diagnosis Type Effective Dates Health Status Clinical Service Informant Presence of ventriculopleural shunt 01/20/24 Non-Specified Procedures Procedure Date Related Diagnosis Body Site Status Excisional biopsy 03/25/23 Complet ed Craniotomy 1 2019 Completed Brain 2 2016 Completed delivery 2015 Complet ed delivery 2014 Complet ed 1Found brain aneurism 22x Results Radiology Reports * Exam Date Time Procedure Performing Provider Status 01/20/24 11:22 AM XR Skull < 4 Views Carbo, Rosa Isela A; Fi nal Notes: (XR Skull < 4 Views) Reason For Exam: Eval shunt setting XR Skull < 4 Views EXAMINATION: XR Skull < 4 Views CLINICAL HISTORY: Z98.2: Presence of cerebrospinal fluid drainage device; Z98.2: Presence of cerebrospinal fluid drainage device; Eval shunt setting COMPARISON: None TECHNIQUE: Single lateral oblique view of the head. FINDINGS: There are postsurgical changes compatible with previous craniotomy. The shunt catheter hardware canbe seen in is available for correlation with the salesperson terrazzo tiles's specification to assess the pressure setting. There is no definite break or kink in the imaged portions of the shunt catheter. No definite destructive osseous lesions are present. IMPRESSION: The shunt hardware can be adequately seen and is available for correlation with the salesperson terrazzo tiles's specifications. Workstation ID: [id number] Final Dictated by:MD Linda Scott Nyshin Dictated DT/TM:01/22/2024 6:22 Signed by:MD Linda Scott Nyshin Signed (Electronic Signature):01/22/2024 6:20 p Social History Social History Type Response Smoking Status Never smoked cigaret alvaro Sex Female 1stopped in 2014 Implantable Device List Procedure Provider Procedure Date Device Type Site Right ICA Unknown 04/04/20 Non Biological Head Device Identifier Serial Number Lot or Batch Number Manufacturing Date Expiration Date Distinct Identification Code MRI Safety Implantable Status Assigning Authority Unknown 1 NA See Below Unknown Unknown Unknown MR Conditi onal Active Unknown Procedure Provider Procedure Date Device Type Site Unknown Unknown 04/04/20 Non Biological Head Device Identifier Serial Number Lot or Batch Number Manufacturing Date Expiration Date Distinct Identification Code MRI Safety Implantable Status Assigning Authority Unknown 2 NA NA Unknown Unknown Unknown MR Conditi onal Active Unknown Procedure Provider Procedure Date Device Type Site Unknown Unknown 10/17/15 Non Biological Head Device Identifier Serial Number Lot or Batch Number Manufacturing Date Expiration Date Distinct Identification Code MRI Safety Implantable Status Assigning Authority Unknown 3 unknown unknown Unknown Unknown Unknown MR Conditi onal Active Unknown Procedure Provider Procedure Date Device Type Site R. Femoral Atery Unknown 09/30/15 Non Biological Leg Upper Device Identifier Serial Number Lot or Batch Number Manufacturing Date Expiration Date Distinct Identification Code MRI Safety Implantable Status Assigning Authority Unknown 4 NA [id number] Unknown Unknown Unknown Condabel onal Active Unknown Procedure Provider Procedure Date Device Type Site Unknown Unknown 09/30/15 Non Biological Head Device Identifier Serial Number Lot or Batch Number Manufacturing Date Expiration Date Distinct Identification Code MRI Safety Implantable Status Assigning Authority Unknown 5 NA [id number] Unknown Unknown Unknown MR Condabel onal Active Unknown 1Implant information on OR nursing record scanned into chart on 01/12/2024, page 92[address] [place], [place] [address]) #[id number]: [id number] #[id number]: [id number] #[id number]: [id number] #[id number]: [id number] 2Has prior MRI here at [facility] on 01/11/23 - implant information scanned with MRi questionnaire paperwork 3Catheter - Codman / J[employer]J - Bactiseal Ventricular Catheter - #[id number] - Lot: [id number] - [facility] - 10/17/2015 (non-ferromagnetic per magresource)*Pt has prior + implant information scanned into chart on 01/11/23 pg. 96 of [facility] 4Implant information on [place] nursing record scanned into chart on 01/12/2024, page 92 of [facility] 5Implant information on [place] nursing record scanned into chart on 01/12/2024, page 94 of [facility] Patient Care team information Care Team Personnel Name: FLORINA Swartz Nicolette S Position: Nurse Pract - Family Med Member Role: Primary Care Provider Address: Address: [address] [place] [address] [place] Care Team Related Persons Name: HEMA BARRAGAN Address: home [address] [place] [address] Name: RIGOBERTO REESE
--- OUTSIDE RECORDS SUMMARY | 2024-03-13 00:36 | External Medical Summary | Continuity of Care Document ---
Author Name Unknown Organization [facility] [address] [id number] Care Team Providers Care Stock Mixer Name Role Phone Tracey Swartz Primary Care Physician [phone] [id number] Date[facility] 12/17/23 - 12/17/23 [facility] [address] [id number] Discharge Disposition: Home or Self Care Attending Physician: MARYAN Garcia Abigail Lauren Referring Physician: MARYAN Garcia Abigail Lauren Allergies, Adverse Reactions, Alerts No Known Medication [...] 30 tab, Refills: 4, [facility] #[id number] Start Date: 07/07/23 Status: Ordered hydrOXYzine hydrochloride 25 mg oral tablet Start: 12/07/23 14:38:00 EST, 1 tab, PO, qid, Disp# 120 tab, Refills: 0, PRN: as needed for anxiety, [facility]acy: [facility] #[id number] Start Date: 12/07/23 Stop Date: 01/06/24 Status: Ordered lacosamide 100 mg oral tablet Start: 12/09/23 9:31:00 EST, 1 tab, PO, bid, Disp# 60 tab, Refills: 5, [facility]: [facility] #[id number] Start Date: 12/09/23 Status: Ordered LORazepam 0.5 mg oral tablet Start: 12/07/23 14:39:00 EST, 1 tab, PO, Daily, Disp# 14 tab, take 1/2 - 1 tablet as needed for panic attacks, PRN: as needed for anxiety, [facility]acy: [facility] #[id number] Start Date: 12/07/23 Stop Date: 12/21/23 Status: [...] Ordered sertraline 25 mg oral tablet Start: 12/07/23 14:38:00 EST, 1 tab, PO, Daily, Disp# 30 tab, Refills: 2, take 1/2 tablet daily x 1week, then increase t 1 tablet daily ongoing, [facility]acy: [facility] #[id number] Start Date: 12/07/23 Stop Date: 03/06/24 Status: Ordered Tylenol 325 mg oral tablet Start: 01/11/23 13:58:00 EDT, 2 tab, PO, q4h, PRN: fever/mild pain (1-3) Start Date: 01/11/23 Status: Ordered Zofran ODT 4 mg oral tablet, disintegrating Start: 01/11/23 17:11:00 EDT, 1 tab, PO, q6h, Disp# 15 tab, PRN: as needed for nausea/vomiting, Pharmacy: [facility] #[id number] Start Date: 01/11/23 Status: Ordered Problem List Condition Confirmation Course Effective Dates Status Health St atus Informant 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 Generalized anxiety disorder with panic attacks Confirmed Active 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 Active Hypertension Confirmed Active Brain aneurysm Confirmed Active Menorrhagia Confirmed 11/07/22 Active Scar of scapular region Confirmed Active Seizure Confirmed Active Solar lentigo Confirmed Active Emotional stress reaction Confirmed Active Procedures Procedure Date Related Diagnosis Body Site Status Excisional biopsy 03/25/23 Complet ed Craniotomy 1 2019 Completed Brain 2 2016 Completed delivery 2015 Complet ed delivery 2014 Complet ed 1Found brain aneurism 22x Results Laboratory List Name Date Anti-Thrombin III.Level (ANTITHROMBIN II I) 12/17/23 Factor V.Leiden (FACTOR V LEIDEN) 4 Homocysteine Level (HOMOCYSTEINE, PLASMA ) 12/17/23 Lipid Profile (LIPOPROTEINS) 12/17/23 Prothrombin.S22189A (PROTHROMBIN E53658U ) 12/17/23 Most recent to oldest [Reference Range]: 1 Homocysteine(p) [<15.0 umol/L] 12.2 umol /L (12/17/23 10:37 AM) Non-HDL 90 mg/dL (12/17/23 10:37 AM) Factor V Leiden NEGATIVE *Unknown* (12/17/23 10:37 AM) Prothrombin [id number] NEGATIVE *Unknown* (12/17/23 10:37 AM) Chol/HDL 2 (12/17/23 10:37 AM) Chol [<200 mg/dL] 164 mg/dL (12/17/23 10:37 AM) HDL [>40 mg/dL] 74 mg/dL (12/17/23 10:37 AM) LDL Chol, Calculated [50-130 mg/dL] 67 m g/dL (12/17/23 10:37 AM) TG [<150 mg/dL] 117 mg/dL (12/17/23 10:37 AM) AT III [80-123 %] 123 % (12/17/23 10:37 AM) Social History Social History Type Response Smoking Status Use: Former smoker;N ever 1 entered on: 12/17/23 Sex Female 1stopped in 2014 Implantable Device List Procedure Provider Procedure Date Device Type Site Unknown Unknown 07/09/20 Non Biological Leg Upper Device Identifier Serial Number Lot or Batch Number Manufacturing Date Expiration Date Distinct Identification Code MRI Safety Implantable Status Assigning Authority Unknown 1 Unknown Unknown Unknown Unknown Unknown MR Conditi onal Active Unknown Procedure Provider Procedure Date Device Type Site Unknown Unknown 04/04/20 Non Biological Head Device Identifier Serial Number Lot or Batch Number Manufacturing Date Expiration Date Distinct Identification Code MRI Safety Implantable Status Assigning Authority Unknown Unknown Unknown Unknown Unknown Unknown MR Conditi onal Active Unknown Unknown Unknown Unknown Unknown Unknown Unknown MR Conditi onal Active Unknown Procedure Provider Procedure Date Device Type Site Unknown Unknown 10/05/15 Non Biological Head Device Identifier Serial Number Lot or Batch Number Manufacturing Date Expiration Date Distinct Identification Code MRI Safety Implantable Status Assigning Authority Unknown Unknown Unknown Unknown Unknown Unknown MR Ezio onal Active Unknown Procedure Provider Procedure Date Device Type Site Unknown Unknown 09/29/15 Non Biological Neck Device Identifier Serial Number Lot or Batch Number Manufacturing Date Expiration Date Distinct Identification Code MRI Safety Implantable Status Assigning Authority Unknown Unknown Unknown Unknown Unknown Unknown MR Holguin onal Active Unknown 1R femoral artery Patient Care team information Care Team Personnel Name: FLORINA Swartz Nicolette S Position: Nurse Pract - Family Med Member Role: Primary Care Provider Address: Address: [address] [place] [address] [place] Care Team Related Persons Name: HEMA BARRAGAN Address: home [address] [place] [address] Name: RIGOBERTO REESE
--- OUTSIDE RECORDS SUMMARY | 2024-03-13 00:36 | External Medical Summary | Continuity of Care Document ---
Author Name Unknown Organization [facility] MDT [address] [place] [address] [place] [phone] Care Team Providers Care Town Clerk Name Role Phone Tracey Swartz Primary Care Physician [phone] [facility] [id number] Date(s): 03/08/24 - 03/08/24 [facility] MDT [address] [place] [address] [place] [phone] Encounter Diagnosis Generalized anxiety disorder with panic attacks(Discharge Diagnosis) - 03/08/24 Moderate depressive disorder(Discharge Diagnosis) - 03/08/24 Weight gain(Discharge Diagnosis) - 03/08/24 Decreased libido(Discharge Diagnosis) - 03/08/24 Discharge Disposition: Home or Self Care Attending Physician: FLORINA Swartz Nicolette S Referring Physician: FLORINA Swartz Nicolette S Allergies, Adverse Reactions, Alerts No Known Medication Allergies Substance Criticality Severity Reaction Reaction Severity Status shrimp Hives, Rash Active Medications amLODIPine 5 mg oral tablet Start: 01/28/24 9:26:00 AM EDT, 1 tab, PO, Daily, Disp# 30 tab, Refills: 3, [facility]: [facility] #[id number] Start Date: 01/28/24 Status: Ordered amLODIPine 5 mg oral tablet Start: 01/28/24 9:25:00 AM EDT, 1 tab, PO, Daily, Disp# 90 tab, Refills: 0, [facility]: [facility] #[id number] Start Date: 01/28/24 Status: Ordered aspirin 81 mg oral delayed release tablet Start: 02/26/23 10:48:00 AM EDT, 1 tab, PO, Daily Start Date: 02/26/23 Status: Ordered atorvastatin 10 mg oral tablet Start: 01/25/24 12:27:00 PM EDT, 1 tab, PO, Daily, Disp# 30 tab, Refills: 3, [facility]: [facility] #[id number] Start Date: 01/25/24 Status: Ordered hydrOXYzine hydrochloride 25 mg oral tablet Start: 01/18/24 1:52:00 PM EDT, 1 tab, PO, qid, Disp# 120 tab, Refills: 4, PRN: as needed for anxiety, Pharmacy: [facility] #[id number] Start Date: 01/18/24 Stop Date: 06/16/24 Status: Ordered lacosamide 100 mg oral tablet Start: 12/09/23 9:31:00 AM EST, 1 tab, PO, bid, Disp# 60 tab, Refills: 5, Pharmacy: [facility] #[id number] Start Date: 12/09/23 Status: Ordered LORazepam 0.5 mg oral tablet Start: 12/07/23 2:39:00 PM EST, 1 tab, PO, Daily, Disp# 14 tab, take 1/2 - 1 tablet as needed for panic attacks, PRN: as needed for anxiety, Pharmacy: [facility] #[id number] Start Date: 12/07/23 Stop Date: 12/21/23 Status: Ordered NuvaRing 0.120 mg-0.015 mg/24 hours vaginal ring Start: 01/09/23 4:53:00 PM EDT, 1 each, INSERT 1 EACH INTO THE VAGINA EVERY 28 DAYS. Start Date: 01/09/23 Status: Ordered orlistat 60 mg oral capsule Start: 03/08/24 3:21:00 PM EDT, 1 cap, PO, Daily, Disp# 30 cap, other Start Date: 03/08/24 Stop Date: 04/07/24 Status: Ordered senna Start: 01/09/23 4:52:00 PM EDT, PO, 2 Unknown, 1 Refill(s), Take 2 tablets by mouth daily as needed (constipation). Start Date: 01/09/23 Status: Ordered Tylenol 325 mg oral tablet Start: 01/11/23 1:58:00 PM EDT, 2 tab, PO, q4h, PRN: fever/mild pain (1-3) Start Date: 01/11/23 Status: Ordered Wellbutrin SR 100 mg/12 hours oral tablet, extended release Start: 03/08/24 3:18:00 PM EDT, 1 tab, PO, Daily, Disp# 30 tab, Refills: 1, [facility]: [facility] #[id number] Start Date: 03/08/24 Stop Date: 05/07/24 Status: Ordered Zofran ODT 4 mg oral tablet, disintegrating Start: 01/11/23 5:11:00 PM EDT, 1 tab, PO, q6h, Disp# 15 tab, PRN: as needed for nausea/vomiting, [facility]acy: [facility] #[id number] Start Date: 01/11/23 Status: Ordered Mental Status 03/08/24 Barriers to Learning one year None evide nt Mandatory Health Literacy Documentation Yes Health Literacy Communication Barriers N ever Primary Language Portuguese Problem List Condition Confirmation Course Effective Dates [...] Effective Dates Health Status Clinical Service Informant Weight gain Discharge Diagnosis 03/08/24 Non-Specified Generalized anxiety disorder with panic attacks Discharge Diagnosis 03/08/24 Non-Specified Moderate depressive disorder Discharge Diagnosis 03/08/24 Non-Specified Decreased libido Discharge Diagnosis 03/08/24 Non-Specified Procedures Procedure Date Related Diagnosis Body Site Status Excisional biopsy 03/25/23 Complet ed Craniotomy 1 2019 Completed Brain 2 2016 Completed delivery 2015 Complet ed delivery 2014 Complet ed 1Found brain aneurism 22x Social History Social History Type Response Smoking Status Never smoked cigaret alvaro Sex Female 1stopped in 2015 Implantable Device List Procedure Provider Procedure Date [...] Implantable Status Assigning Authority Unknown 4 NA [id number] Unknown Unknown Unknown MR Conditi onal Active Unknown Procedure Provider Procedure Date Device Type Site Unknown Unknown 09/30/15 Non Biological Head Device Identifier Serial Number Lot or Batch Number Manufacturing Date Expiration Date Distinct Identification Code MRI Safety Implantable Status Assigning Authority Unknown 5 NA [id number] Unknown Unknown Unknown MR Conditi onal Active Unknown 1Implant information on [place] nursing record scanned into chart on 01/12/2024, page 92/[address] [place], [place] [address]) #[id number]: [id number]) #[id number] LOT: [id number]) #[id number] LOT: [id number]) #[id number] LOT: [id number] 2Has prior MRI here at [facility] on 01/11/23 - implant information scanned with MRi questionnaire paperwork 3Catheter - Codman / J[employer]J - Bactiseal Ventricular Catheter - #[id number] - Lot: [id number] - [facility] - 10/17/2015 (non-ferromagnetic per magresource)*Pt has prior + implant information scanned into chart on 01/11/[address] [place] [address] 4Implant information on [place] nursing record scanned into chart on 01/12/2024, [address] [place] [address] 5Implant information on [place] nursing record scanned into chart on 01/12/2024, [address] [place] [address] Patient Care team information Care Team Personnel Name: FLORINA Swartz Nicolette S Position: Nurse Pract - Family Med Member Role: Primary Care Provider Address: Address: [address] [place] [id number] [place] Care Team Related Persons Name: HEMA BARRAGAN Address: home [address] [place] [address] Name: RIGOBERTO REESE
--- OUTSIDE RECORDS SUMMARY | 2024-03-13 00:36 | External Medical Summary | Continuity of Care Document ---
Author Name Unknown Organization [facility] [address] Address [address] [place] [id number] Care Team Providers Care Photographer Motion Picture Name Role Phone Tracey Swartz Primary Care Physician [phone] [id number] Date(s): 01/19/24 - 01/19/24 [facility] [address] [facility] [address] [facility], [address] [phone] Discharge Disposition: Home or Self Care Attending Physician: MD Gonzales Ephraim W Referring Physician: MD Gonzales Ephraim W Allergies, Adverse Reactions, Alerts No Known Medication [...] 30 tab, Refills: 4, [id number] Start Date: 07/07/23 Status: Ordered hydrOXYzine hydrochloride 25 mg oral tablet Start: 01/18/24 13:52:00 EDT, 1 tab, PO, qid, Disp# 120 tab, Refills: 4, PRN: as needed for anxiety, Pharmacy: [facility] #[id number] Start Date: 01/18/24 Stop Date: 06/16/24 Status: Ordered lacosamide 100 mg oral tablet Start: 12/09/23 9:31:00 EST, 1 tab, PO, bid, Disp# 60 tab, Refills: 5, [facility]acy: [facility] #[id number] Start Date: 12/09/23 Status: Ordered LORazepam 0.5 mg oral tablet Start: 12/07/23 14:39:00 EST, 1 tab, PO, Daily, Disp# 14 tab, take 1/2 - 1 tablet as needed for panic attacks, PRN: as needed for anxiety, Pharmacy: [facility] #[id number] Start Date: 12/07/23 Stop Date: 12/21/23 Status: [...] 30 tab, Refills: 4, [facility]acy: [facility] #[id number] Start Date: 01/18/24 Stop Date: 06/16/24 Status: Ordered Tylenol 325 mg oral tablet Start: 01/11/23 13:58:00 EDT, 2 tab, PO, q4h, PRN: fever/mild pain (1-3) Start Date: 01/11/23 Status: Ordered Zofran ODT 4 mg oral tablet, disintegrating Start: 01/11/23 17:11:00 EDT, 1 tab, PO, q6h, Disp# 15 tab, PRN: as needed for nausea/vomiting, Pharmacy: [facility] #[id number] Start Date: 01/11/23 Status: Ordered Problem List [...] Exam Date Time Procedure Performing Provider Status 01/19/24 11:19 AM MRA Brain/Head w/o Contrast Jemal Mayo; Final Notes: (MRA Brain/Head w/o Contrast) Reason For Exam: Brain aneurysm MRA Brain/Head w/o Contrast EXAMINATION: MRA OF THE BRAIN WITHOUT CONTRAST CLINICAL HISTORY: I67.1: Cerebral aneurysm, nonruptured; In 1 year at follow up visit Brain aneurysm COMPARISON: MRI and MRA of the brain 01/11/2023, TECHNIQUE: Magnetic resonance angiography of the brain was performed utilizing 3D TOF (time of flight) technique. FINDINGS: Internal Carotid Artery: Unremarkable HARRIET: Unremarkable ACOM: Stable postoperative changes of anterior communicating artery aneurysm clipping. Susceptibility artifact related to aneurysm clip limits evaluation of adjacent structures. No residual aneurysm filling is identified. 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 PCOM: Not clearly visualized Vertebro-basilar arteries: Unremarkable IMPRESSION: Stable postoperative changes of prior right anterior cerebral artery aneurysm clipping with no residual aneurysm filling. No new aneurysm identified. [place] Act 112: This study does not meet the requirements of [place] Act 112. Workstation ID: [id number] Final Dictated by:MD Carter Jonathon K Dictated DT/TM:01/20/2024 1:12 Signed by:MD Carter Jonathon K Signed (Electronic Signature):01/20/2024 1:10 p Social History Social History Type Response [...] Implantable Status Assigning Authority Unknown 4 NA [id number] Unknown Unknown Unknown MR Conditi onal Active Unknown Procedure Provider Procedure Date Device Type Site Unknown Unknown 09/30/15 Non Biological Head Device Identifier Serial Number Lot or Batch Number Manufacturing Date Expiration Date Distinct Identification Code MRI Safety Implantable Status Assigning Authority Unknown 5 NA [id number] Unknown Unknown Unknown MR Conditi onal Active Unknown 1Implant information on [place] nursing record scanned into chart on 01/12/2024, page 92/[address] [place], [place] [address]) #[id number]: [id number]) #[id number]: [id number]) #[id number] LOT: [id number]) #[id number] LOT: [id number] 2[place] [facility] [place] - implant information scanned with MRi questionnaire paperwork 3Catheter - Codman / J&J - Bactiseal Ventricular Catheter - #[id number] - Lot: [id number] - [facility] - 10/17/2015 (non-ferromagnetic per magresource)*Pt has prior + implant information scanned into chart on 01/11/23 pg. 96 of [facility] 4Implant information on [place] nursing record scanned into chart on 01/12/2024, [address] [place] [address] 5Implant information on [place] nursing record scanned into chart on 01/12/2024, page [address] [place] [address] Patient Care team information Care Team Personnel Name: FLORINA Swartz Nicolette S Position: Nurse Pract - Family Med Member Role: Primary Care Provider Address: Address: [address] [place] [address] [place] Care Team Related Persons Name: HEMA BARRAGAN Address: home [address] [place] [address] Name: RIGOBERTO REESE
--- OUTSIDE RECORDS SUMMARY | 2024-03-13 00:36 | External Medical Summary | Continuity of Care Document ---
Author Name Unknown Organization [facility] [address] [place] [phone] Care Team Providers Care Electronic Scale Assembler And Tester Name Role Phone Tracey Swartz Primary Care Physician [phone] [id number] Date(s): 01/25/24 - 01/25/24 [place] [address] [facility] Neurosurgery [address], [address], [address] [place] [address] [phone] Encounter Diagnosis Brain aneurysm(Discharge Diagnosis) - 01/25/24 Discharge Disposition: Home or Self Care Attending Physician: MD Christian, Yonathan Tracey Allergies, Adverse Reactions, Alerts No Known Medication Allergies Substance Reaction Severity Status shrimp Hives, Rash Active Medications aspirin 81 mg oral delayed release tablet Start: 02/26/23 10:48:00 EDT, 1 tab, PO, Daily Start Date: 02/26/23 Status: Ordered atorvastatin 10 mg oral tablet Start: 01/25/24 12:27:00 EDT, 1 tab, PO, Daily, Disp# 30 tab, Refills: 3, [facility]: [facility] #[id number] Start Date: 01/25/24 Status: Ordered hydrOXYzine hydrochloride 25 mg oral tablet Start: 01/18/24 13:52:00 EDT, 1 tab, PO, qid, Disp# 120 tab, Refills: 4, PRN: as needed for anxiety, Pharmacy: [facility] #[id number] Start Date: 01/18/24 Stop Date: 06/16/24 Status: Ordered lacosamide 100 mg oral tablet Start: 12/09/23 9:31:00 EST, 1 tab, PO, bid, Disp# 60 tab, Refills: 5, Pharmacy: [facility] #[id number] Start Date: 12/09/23 Status: Ordered LORazepam 0.5 mg oral tablet Start: 12/07/23 14:39:00 EST, 1 tab, PO, Daily, Disp# 14 tab, take 1/2 - 1 tablet as needed for panic attacks, PRN: as needed for anxiety, Pharmacy: [facility] #[id number] Start Date: 12/07/23 Stop Date: 12/21/23 Status: [...] 30 tab, Refills: 4, [facility]acy: [facility] #[id number] Start Date: 01/18/24 Stop Date: 06/16/24 Status: Ordered Tylenol 325 mg oral tablet Start: 01/11/23 13:58:00 EDT, 2 tab, PO, q4h, PRN: fever/mild pain (1-3) Start Date: 01/11/23 Status: Ordered Zofran ODT 4 mg oral tablet, disintegrating Start: 01/11/23 17:11:00 EDT, 1 tab, PO, q6h, Disp# 15 tab, PRN: as needed for nausea/vomiting, Pharmacy: [facility] #[id number] Start Date: 01/11/23 Status: Ordered Mental Status 01/25/24 Barriers to Learning one year None evide nt Mandatory Health Literacy Documentation Yes Health Literacy Communication Barriers N ever Primary Language Trinidadian Problem List Condition Confirmation Course Effective Dates [...] Diagnosis Diagnosis Type Effective Dates Health Status inical Service Informant Brain aneurysm Discharge Diagnosis 01/25/24 Non-Specified Procedures Procedure Date Related Diagnosis Body [...] Implantable Status Assigning Authority Unknown 4 NA [id number] Unknown Unknown Unknown MR Conditi onal Active Unknown Procedure Provider Procedure Date Device Type Site Unknown Unknown 09/30/15 Non Biological Head Device Identifier Serial Number Lot or Batch Number Manufacturing Date Expiration Date Distinct Identification Code MRI Safety Implantable Status Assigning Authority Unknown 5 NA [id number] Unknown Unknown Unknown MR Conditi onal Active Unknown 1Implant information on [place] nursing record scanned into chart on 01/12/2024, page 92/94 of 100 - HNR1) #[id number] LOT: [id number]) #[id number] LOT: [id number]) #[id number] LOT: [id number]) #[id number] LOT: [id number] 2Has prior MRI here at [facility] on 01/11/23 - implant information scanned with MRi questionnaire paperwork 3Catheter - Codman / J&J - Bactiseal Ventricular Catheter - #[id number] - Lot: [id number] - [facility] - 10/17/2015 (non-ferromagnetic per magresource)*Pt has prior + implant information scanned into chart on 01/11/23 pg. 96 of 100 - [facility] 4Implant information on [place] nursing record scanned into chart on 01/12/2024, page 92 of [facility] 5Implant information on [place] nursing record scanned into chart on 01/12/2024, page 94 of 100 - [facility] Patient Care team information Care Team Personnel Name: FLORINA Swartz Nicolette S Position: Nurse Pract - Family Med Member Role: Primary Care Provider Address: Address: [address] [place] [address] [place] Care Team Related Persons Name: HEMA BARRAGAN Address: home [address] [place] [address] Name: RIGOBERTO REESE
--- OUTSIDE RECORDS SUMMARY | 2024-03-13 00:36 | External Medical Summary | Continuity of Care Document ---
Author Name Unknown Organization [facility] [address] [place] [address] [place] [phone] Care Team Providers Care Maxillofacial Prosthetics Dentist Name Role Phone Tracey Swartz Primary Care Physician [phone] En[facility] [id number] Date(s): 03/08/24 - 03/08/24 [facility] [address] [place] [address] [place] [address] [phone] Encounter Diagnosis Generalized anxiety disorder with panic [...] 30 tab, Refills: 3, [facility]acy: [facility] #[id number] Start Date: 01/28/24 Status: Ordered amLODIPine 5 mg oral tablet Start: 01/28/24 9:25:00 AM EDT, 1 tab, PO, Daily, Disp# 90 tab, Refills: 0, Pharmacy: [facility] #[id number] Start Date: 01/28/24 Status: Ordered aspirin 81 mg oral delayed release tablet Start: 02/26/23 10:48:00 AM EDT, 1 tab, PO, Daily Start Date: 02/26/23 Status: Ordered atorvastatin 10 mg oral tablet Start: 01/25/24 12:27:00 PM EDT, 1 tab, PO, Daily, Disp# 30 tab, Refills: 3, Pharmacy: [facility] #[id number] Start Date: 01/25/24 Status: Ordered hydrOXYzine hydrochloride 25 mg oral tablet Start: 01/18/24 1:52:00 PM EDT, 1 tab, PO, qid, Disp# 120 tab, Refills: 4, PRN: as needed for anxiety, Pharmacy: [facility] #[id number] Start Date: 01/18/24 Stop Date: 06/16/24 Status: Ordered lacosamide 100 mg oral tablet Start: 12/09/23 9:31:00 AM EST, 1 tab, PO, bid, Disp# 60 tab, Refills: 5, Pharmacy: [facility] #[id number] Start Date: 12/09/23 Status: Ordered LORazepam 0.5 mg oral tablet Start: 12/07/23 2:39:00 PM EST, 1 tab, PO, Daily, Disp# 14 tab, take 1/2 - 1 tablet as needed for panic attacks, PRN: as needed for anxiety, Pharmacy: [facility] #[id number] Start Date: 12/07/23 Stop Date: 12/21/23 Status: [...] 30 tab, Refills: 1, Pharmacy: [facility] #[id number] Start Date: 03/08/24 Stop Date: 05/07/24 Status: Ordered Zofran ODT 4 mg oral tablet, disintegrating Start: 01/11/23 5:11:00 PM EDT, 1 tab, PO, q6h, Disp# 15 tab, PRN: as needed for nausea/vomiting, Pharmacy: [facility] #[id number] Start Date: 01/11/23 Status: Ordered Mental Status 03/08/24 Barriers to Learning one year None evide nt Mandatory Health Literacy Documentation Yes Health Literacy Communication Barriers N ever Primary Language French Problem List Condition Confirmation Course Effective Dates [...] Implantable Status Assigning Authority Unknown 4 NA [id number] Unknown Unknown Unknown MR Conditi onal Active Unknown Procedure Provider Procedure Date Device Type Site Unknown Unknown 09/30/15 Non Biological Head Device Identifier Serial Number Lot or Batch Number Manufacturing Date Expiration Date Distinct Identification Code MRI Safety Implantable Status Assigning Authority Unknown 5 NA [id number] Unknown Unknown Unknown MR Conditi onal Active Unknown 1Implant information on [place] nursing record scanned into chart on 01/12/2024, page 92/[address] [place], [place] [address]) #[id number] LOT: [id number]) #[id number] LOT: [id number]) #[id number] LOT: [id number]) #[id number] LOT: [id number] 2Has prior MRI here at [facility] on 01/11/23 - implant information scanned with MRi questionnaire paperwork 3Catheter - Codman / J&J - Bactiseal Ventricular Catheter - #[id number] - Lot: [id number] - [facility] - 10/17/2015 (non-ferromagnetic per magresource)*Pt has prior + implant information scanned into chart on 01/11/[address] [place] [address] 4Implant information on [place] nursing record scanned into chart on 01/12/2024, [address] [place] [address] 5Implant information on [place] nursing record scanned into chart on 01/12/2024, page [address] [place] [address] Patient Care team information Care Team Personnel Name: FLORINA Swartz Nicolette S Position: Nurse Pract - Family Med Member Role: Primary Care Provider Address: Address: [address] [place] [address] [place] Care Team Related Persons Name: HEMA BARRAGAN Address: home [address] [place] [address] Name: RIGOBERTO REESE
--- OUTSIDE RECORDS SUMMARY | 2024-03-13 00:36 | External Medical Summary | Continuity of Care Document ---
Author Name Unknown Organization [facility] Earl [address] [place] [phone] Care Team Providers Care Certified Solid Waste Facility Operator Name Role Phone Tracey Swartz Primary Care Physician [phone] [id number] Date(s): 01/19/24 - 01/19/24 [facility] Earl [address] [facility] Neurosurgery [address] [place] [address] [phone] Encounter Diagnosis CONDENSER TUBE TENDER (ventriculoperitoneal) shunt status(Discharge Diagnosis) - 01/19/24 Discharge Disposition: Home or Self Care Attending Physician: FLORINA Quinones Heather Allergies, Adverse Reactions, [...] 30 tab, Refills: 4, [facility]acy: [facility] #[id number] Start Date: 07/07/23 Status: Ordered hydrOXYzine hydrochloride 25 mg oral tablet Start: 01/18/24 13:52:00 EDT, 1 tab, PO, qid, Disp# 120 tab, Refills: 4, PRN: as needed for anxiety, Pharmacy: [facility] #[id number] Start Date: 01/18/24 Stop Date: 06/16/24 Status: Ordered lacosamide 100 mg oral tablet Start: 12/09/23 9:31:00 EST, 1 tab, PO, bid, Disp# 60 tab, Refills: 5, Pharmacy: [facility] #[id number] Start Date: 12/09/23 Status: Ordered LORazepam 0.5 mg oral tablet Start: 12/07/23 14:39:00 EST, 1 tab, PO, Daily, Disp# 14 tab, take 1/2 - 1 tablet as needed for panic attacks, PRN: as needed for anxiety, Pharmacy: [facility] #[id number] Start Date: 12/07/23 Stop Date: 12/21/23 Status: [...] 30 tab, Refills: 4, Pharmacy: [facility] #[id number] Start Date: 01/18/24 Stop Date: 06/16/24 Status: Ordered Tylenol 325 mg oral tablet Start: 01/11/23 13:58:00 EDT, 2 tab, PO, q4h, PRN: fever/mild pain (1-3) Start Date: 01/11/23 Status: Ordered Zofran ODT 4 mg oral tablet, disintegrating Start: 01/11/23 17:11:00 EDT, 1 tab, PO, q6h, Disp# 15 tab, PRN: as needed for nausea/vomiting, Pharmacy: [facility] #[id number] Start Date: 01/11/23 Status: Ordered Mental Status 01/19/24 Barriers to Learning one year None evide nt Mandatory Health Literacy Documentation Yes Health Literacy Communication Barriers N ever Primary Language Cape Verdean Problem List Condition Confirmation Course Effective Dates [...] Diagnosis Diagnosis Type Effective Dates Health Status Cl inical Service Informant CONDENSER TUBE TENDER (ventriculoperit trammell) shunt status Discharge Diagnosis 01/19/24 Procedures Procedure Date Related Diagnosis Body Site Status Excisional biopsy 03/25/23 Complet ed Craniotomy 2019 Completed Brain 2 2016 Completed delivery 2014 Complet ed delivery 2014 Complet ed 1Found [...] Implantable Status Assigning Authority Unknown 4 NA [id number] Unknown Unknown Unknown MR Conditi onal Active Unknown Procedure Provider Procedure Date Device Type Site Unknown Unknown 09/30/15 Non Biological Head Device Identifier Serial Number Lot or Batch Number Manufacturing Date Expiration Date Distinct Identification Code MRI Safety Implantable Status Assigning Authority Unknown 5 NA [id number] Unknown Unknown Unknown MR Conditi onal Active Unknown 1Implant information on [place] nursing record scanned into chart on 01/12/2024, page 92/94 of 100 - HNR1) #[id number]: [id number]) #[id number] LOT: [id number]) #[id number] LOT: [id number]) #[id number] LOT: [id number] 2[place] prior [place] [facility] [place] - implant information scanned with MRi questionnaire paperwork 3Catheter - Codman / J&J - Bactiseal Ventricular Catheter - #[id number] - Lot: [id number] - [facility] - 10/17/2015 (non-ferromagnetic per magresource)*Pt has prior + implant information scanned into chart on 01/11/[address] [place] [address] 4Implant information on [place] nursing record scanned into chart on 01/12/2024, page [address] [place] [address] 5Implant information on [place] nursing record scanned into chart on 01/12/2024, page [address] [place] [address] Patient Care team information Care Team Personnel Name: FLORINA Swartz Nicolette S Position: Nurse Pract - Family Med Member Role: Primary Care Provider Address: Address: [address] [place] [address] Care Team Related Persons Name: HEMA BARRAGAN Address: home [address] [place] [address] Name: RIGOBERTO REESE
--- OUTSIDE RECORDS SUMMARY | 2024-03-13 00:37 | External Medical Summary | Continuity of Care Document ---
Author Name Unknown Organization [place] [address] [address] Address 30 [facility] [address] [place] [phone] Care Team Providers Care [employer] Professional Name Role Phone Tracey Swartz Primary Care Physician [phone] [id number] Date[facility]s): 12/09/23 - 12/09/23 [place] [address] [address] [facility] [place] [address] [facility], [address], [address] [place] [address] [phone] Encounter Diagnosis Seizure(Discharge Diagnosis) - 12/09/23 Discharge Disposition: Home or Self Care Attending Physician: MARYAN Morris, Litzy Foster Allergies, Adverse Reactions, Alerts No Known Medication [...] 30 tab, Refills: 4, [facility]: [facility] #[id number] Start Date: 07/07/23 Status: Ordered hydrOXYzine hydrochloride 25 mg oral tablet Start: 12/07/23 14:38:00 EST, 1 tab, PO, qid, Disp# 120 tab, Refills: 0, PRN: as needed for anxiety, Pharmacy: [facility] #[id number] Start Date: 12/07/23 Stop Date: 01/06/24 Status: Ordered lacosamide 100 mg oral tablet Start: 12/09/23 9:31:00 EST, 1 tab, PO, bid, Disp# 60 tab, Refills: 5, [facility]acy: [facility] #[id number] Start Date: 12/09/23 Status: Ordered LORazepam 0.5 mg oral tablet Start: 12/07/23 14:39:00 EST, 1 tab, PO, Daily, Disp# 14 tab, take 1/2 - 1 tablet as needed for panic attacks, PRN: as needed for anxiety, Pharmacy: [facility] #[id number] Start Date: 12/07/23 Stop Date: 12/21/23 Status: [...] 1 tablet daily ongoing, [facility]acy: [facility] #[id number] Start Date: 12/07/23 Stop Date: 03/06/24 Status: Ordered Tylenol 325 mg oral tablet Start: 01/11/23 13:58:00 EDT, 2 tab, PO, q4h, PRN: fever/mild pain (1-3) Start Date: 01/11/23 Status: Ordered Zofran ODT 4 mg oral tablet, disintegrating Start: 01/11/23 17:11:00 EDT, 1 tab, PO, q6h, Disp# 15 tab, PRN: as needed for nausea/vomiting, Pharmacy: [facility] #[id number] Start Date: 01/11/23 Status: Ordered Mental Status 12/09/23 Barriers to Learning one year None evide nt Mandatory Health Literacy Documentation Yes Health Literacy Communication Barriers N ever Primary Language Palestinian Problem List Condition Confirmation Course Effective Dates [...] Diagnosis Diagnosis Type Effective Dates Health Status Clini mary ann Service Informant Seizure Discharge Diagnosis 12/09/23 Procedures Procedure Date Related Diagnosis Body Site Status Excisional biopsy 03/25/23 Complet ed Craniotomy 1 2019 Completed Brain 2 2016 Completed delivery 2014 Complet ed delivery 2014 Complet ed 1Found brain aneurism 22x Vital Signs Most recent to oldest [Reference Range]: 1 Patient Weight 58.8 kg (12/09/23 9:10 AM) Heart Rate 66 bpm (12/09/23 9:10 AM) Blood Pressure 128/76mmHg (12/09/23 9:10 AM) Cuff Pulse Pressure 52 mmHg (12/09/23 9:10 AM) BP Location # 1 Right Arm (12/09/23 9:10 AM) Social History Social History Type Response Smoking Status Former Smoker, quit > 1 yr Sex Female Implantable Device List Procedure Provider Procedure Date [...] Unknown Unknown MR Conditi onal Active Unknown 1R femoral artery Patient Care team information Care Team Personnel Name: FLORINA Swartz Nicolette S Position: Nurse Pract - Family Med Member Role: Primary Care Provider Address: Address: [address] [place] [address] Care Team Related Persons Name: HEMA BARRAGAN Address: home [address] [place] [address], [address] Name: RIGOBERTO REESE
--- OUTSIDE RECORDS SUMMARY | 2024-03-13 00:37 | External Medical Summary | Continuity of Care Document ---
Author Name Unknown Organization [facility] [address] [place] [address] [place] [address] [id number] Care Team Providers Care Bridge Welder Name Role Phone Tracey Swartz Primary Care Physician [phone] [id number] Date(s): 12/07/23 - 12/07/23 [facility] [address] [place] [address] [place] [id number] [phone] Encounter Diagnosis Hypertension(Discharge Diagnosis) - 12/07/23 History of embolic stroke(Discharge Diagnosis) - 12/07/23 Brain aneurysm(Discharge Diagnosis) - 12/07/23 Generalized anxiety disorder with panic attacks(Discharge Diagnosis) - 12/07/23 Emotional stress reaction(Discharge Diagnosis) - 12/07/23 Discharge Disposition: Home or Self Care Attending Physician: FLORINA Swartz Nicolette S Allergies, Adverse [...] 30 tab, Refills: 4, Pharmacy: [facility] #[id number] Start Date: 07/07/23 Status: Ordered hydrOXYzine hydrochloride 25 mg oral tablet Start: 12/07/23 14:38:00 EST, 1 tab, PO, qid, Disp# 120 tab, Refills: 0, PRN: as needed for anxiety, Pharmacy: [facility] #[id number] Start Date: 12/07/23 Stop Date: 01/06/24 Status: Ordered lacosamide 100 mg oral tablet Start: 12/09/23 9:31:00 EST, 1 tab, PO, bid, Disp# 60 tab, Refills: 5, Pharmacy: [facility] #[id number] Start Date: 12/09/23 Status: Ordered LORazepam 0.5 mg oral tablet Start: 12/07/23 14:39:00 EST, 1 tab, PO, Daily, Disp# 14 tab, take 1/2 - 1 tablet as needed for panic attacks, PRN: as needed for anxiety, Pharmacy: [facility] #[id number] Start Date: 12/07/23 Stop Date: 12/21/23 Status: [...] 1 tablet daily ongoing, Pharmacy: [facility] #[id number] Start Date: 12/07/23 Stop Date: 03/06/24 Status: Ordered Tylenol 325 mg oral tablet Start: 01/11/23 13:58:00 EDT, 2 tab, PO, q4h, PRN: fever/mild pain (1-3) Start Date: 01/11/23 Status: Ordered Zofran ODT 4 mg oral tablet, disintegrating Start: 01/11/23 17:11:00 EDT, 1 tab, PO, q6h, Disp# 15 tab, PRN: as needed for nausea/vomiting, Pharmacy: [facility] #[id number] Start Date: 01/11/23 Status: Ordered Mental Status 12/07/23 Barriers to Learning one year None evide nt Mandatory Health Literacy Documentation Yes Health Literacy Communication Barriers N ever Primary Language Czech Problem List Condition Confirmation Course Effective Dates [...] Effective Dates Health Status Clinical Service Informant Hypertension Discharge Diagnosis 12/07/23 History of embolic stroke Discharge Diagnosis 12/07/23 Generalized anxiety disorder with panic attacks Discharge Diagnosis 12/07/23 Emotional stress reaction Discharge Diagnosis 12/07/23 Brain aneurysm Discharge Diagnosis 12/07/23 Procedures Procedure Date Related Diagnosis Body Site Status Excisional biopsy 03/25/23 Complet ed Craniotomy 2019 Completed Brain 2 2015 Completed delivery 2014 Complet ed delivery 2013 Complet ed 1Found brain aneurism 22x Vital Signs Most recent to oldest [Reference Range]: 1 Height 168.3 cm (12/07/23 1:37 PM) Patient Weight 58.6 kg (12/07/23 1:37 PM) Body Mass Index 20.69 kg/m2 (12/07/23 1:37 PM) Temperature [36.5-37.9 DegC] 36.9 DegC (12/07/23 1:37 PM) Heart Rate 88 bpm (12/07/23 1:37 PM) Respiratory Rate 16 br/min (12/07/23 1:37 PM) Systolic Blood Pressure 128 mmHg (12/07/23 1:37 PM) Diastolic Blood Pressure 86 mmHg (12/07/23 1:37 PM) Cuff Pulse Pressure 42 mmHg (12/07/23 1:37 PM) BP Location # 1 Left Arm, Non-invasive (12/07/23 1:37 PM) Social History Social History Type Response Smoking [...] Member Role: Primary Care Provider Address: Address: [address] [place] [address] [place] Care Team Related Persons Name: HEMA BARRAGAN Address: home [address] [place] [address] Name: RIGOBERTO REESE
[2024-03-13] MEDS: ATORVASTATIN 10 MG TAB PO ONE (03:11)
[2024-03-13] MEDS: LACOSAMIDE 50 MG TABLET PO STA (03:12)
[2024-03-13] MEDS: SODIUM CHLORIDE 0.9% 1,000 ML IV SCH (03:32)
[2024-03-13 06:34] LABS: Basophils # (auto) 0.03 K/uL (0.00-0.20); Basophils % (auto) 0.5 %; Eosinophils # (auto) 0.18 K/uL (0.00-0.50); Eosinophils % (auto) 2.8 %; Hematocrit (blood only) 38.1 % (37.0-47.0); Hemoglobin 12.7 g/dl (12.0-16.0); Immature Granulocytes # (auto) 0.06 K/uL (0.01-0.20); Immature Granulocytes % (auto) 0.9 %; Lymphocytes # (auto) 2.13 K/uL (1.20-3.40); Lymphocytes % (auto) 33.1 %; Mean Corpuscular Hemoglobin 28.8 pg (25.0-34.0); Mean Corpuscular Hgb Conc 33.3 g/dL (32.0-36.0); Mean Corpuscular Volume 86.4 fL (80.0-100.0); Mean Platelet Volume 9.9 fL (9.4-12.4); Monocytes # (auto) 0.53 K/uL (0.11-0.59); Monocytes % (auto) 8.2 %; Neutrophils # (auto) 3.51 K/uL (1.40-6.50); Neutrophils % (auto) 54.5 %; Platelet Count 217 K/uL (130-400); RDW Coefficient of Variation 12.8 % (11.5-14.5); RDW Standard Deviation 40.8 fL (36.4-46.3); Red Blood Count 4.41 M/uL (4.20-5.40); White Blood Count 6.44 K/ul (4.8-10.8)
[2024-03-13 06:54] LABS: BUN Creatinine Ratio 12.5 (10-20); Calcium 8.7 mg/dl (8.6-10.3); Chol HDL Ratio 1.9 (0-5); Creatinine Clr Calc Pharmacy 101.1 ml/min; Est GFR (African American) 120.6 ml/min; Potassium 4.2 mmol/L (3.5-5.1)
--- NOTE | 2024-03-13 07:26 | Electrocardiogram Report ---
Test Reason : Blood Pressure : / mmHG Vent. Rate : 102 BPM Atrial Rate : 102 BPM P-R Int : 156 ms QRS Dur : 086 ms QT Int : 348 ms P-R-T Axes : 052 -05 041 degrees QTc Int : 453 ms Sinus tachycardia Otherwise normal ECG No previous ECGs available Confirmed by Landon Luke ([id number]) on 03/13/2024 7:25:39 AM Referred By: REFERRED SELF Confirmed By:Tanner Luke
--- NOTE | 2024-03-13 08:33 | XRay Report ---
SINGLE VIEW CHEST CLINICAL HISTORY: Neurological deficit. Stroke like symptoms. FINDINGS: An AP, portable, upright chest radiograph is obtained. No prior studies are available for c omparison at the time of dictation. The cardiomediastinal silhouette is unremarkable. The lungs and p leural spaces are clear. No pneumothorax is seen. The bony thorax is grossly intact. IMPRESSION: No active disease in the chest. ACT 112: Negative or not required by law. Electronically signed by: Wilfred Robles M.D. 03/13/2024 8:32 AM
[2024-03-13] MEDS ORDERED: NON-FORMULARY MEDICATION (Biotin 10 mg Tablet) PO SCH (09:00)
[2024-03-13] MEDS ORDERED: amLODIPine BESYLATE 5 MG TAB PO SCH (09:00)
[2024-03-13] MEDS ORDERED: NON-FORMULARY MEDICATION (Collagen-Biotin-Ascorbic Acid 500 mg-800 mcg- 50 mg Capsule) PO SCH (09:00)
[2024-03-13] MEDS: ASPIRIN 81 MG ECTAB PO SCH (09:07)
[2024-03-13] MEDS: LACOSAMIDE 50 MG TABLET PO SCH (09:08)
[2024-03-13] MEDS: SERTRALINE HCL 50 MG TABLET PO SCH (09:09)
[2024-03-13] MEDS: amLODIPine BESYLATE 5 MG TAB PO SCH (09:10)
[2024-03-13] MEDS: buPROPion SR 100 MG TABCR PO SCH (09:10)
--- NOTE | 2024-03-13 12:28 | Hospitalist Progress Note ---
Date of Service March 13, 2024 Assessment & Plan (1) Stroke-like symptom: Plan: 43-year-old female with past medical history significant for right internal carotid artery aneurysm, chronic hypertension, brain aneurysm, history of seizures, presents with strokelike symptoms. Around 7 PM when she was coming from dinner she noticed some numbness in the Left side of face and left upper extremity. 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 She also underwent coiling of a ruptured right posterior communicating aneurysm, flow diversion of the right P1 aneurysm and surgery for clipping of the right anterior communicating aneurysm. She also underwent angiogram and the procedure was completed with postprocedure stroke. She used to follow-up with [place] [facility] but she moved out of the area and current following with [facility] as per patient. Stroke alert was called on admission Was deemed not to be a TNK candidate. Has mild headache and dizziness. Initially was short of breath but currently resolved. CT head noted an approximate 6 cm area of encephalomalacia in the right parietal and occipital lobe with surrounding gliosis consistent with old infarct or surg ical resection. No acute large vessel infarct or intracranial hemorrhage seen. Previous right frontotemporoparietal craniotomy. There is an aneurysmal clip at the base of the brain as well as an adjacent embolization coil and metallic stent extending into the proximal posterior cerebral artery on the right. CT angio of the head noted embolization because adjacent to the distal right internal carotid artery. No residual or recurrent aneurysm is seen. An aneurysmal clip adjacent to the distal right internal carotid artery and anterior communicating artery. Previous right-sided craniotomy. Metallic stent in the proximal right posterior cerebral artery. There vessel is obscured and likely chronically occluded. No acute appearing large vessel occlusion is identified CT angio of the neck noted no acute findings in the arteries of the neck. Possible CVA Patient was evaluated by neurologist. Discussed extensively with neurologist Dr. Alberto. Recommended considering patient neurological history, history of previous stroke and her age will need extensive evaluation including an MRI of the brain. MRI was ordered and I discussed with video surveillance technician Radha considering patient history of have ?programmable shunts, aneurysmal clip and coils and has not had an MRI here. instrument repair technician reported she discussed with Radiologist who discussed with Dr Robles and he said we can't do MRI here. After further conversation with Neurologist, Patient and ; patient and decided to be transferred to [facility] for further Neurology workup and evaluation. I called transfer center and was connected to [facility] Patient was accepted under Dr Yanes. Patient notified Hypertension - on amlodipine at home Seizures- on lacosamide Anxiety/depression Admission and Anticipated Discharge Date Admission Date: March 12, 2024 Subjective Patient seen and examined Reports left facial numbness has resolved Reports most of LUE numbness/tingling sensation has resolved but still has "spasm-like" feeling in the left hand Reports mild headache Denied blurry vision, focal weakness Denied all other complaints on ROS Physical Exam Constitutional: + well hydrated; no acute distress Eyes: PERRL, conjunctivae normal, anicteric sclerae ENMT: external ear and nose normal, oropharynx normal Respiratory: normal respiratory effort, lungs clear to auscultation Cardiovascular: Rate/Rhythm: regular rate and regular rhythm Gastrointestinal (Abdomen): normal bowel sounds, soft, nontender, no hepatosplenomegaly Musculoskeletal: no cyanosis or clubbing, extremities motor strength 5/5 Neurologic: PERRL, EOMI, accommodation nl, no face palsy, no dysarthria No dysdiadochokinesis Power is normal in all extremities CN II, III, IV, V, , VII, VIII, IX, X, XI, XII grossly intact Psychiatric: A+Ox3, euthymic affect Results & Data Results & Data Vital Signs (Past 12 Hours) Vital Signs Pulse Pulse Resp BP BP Pulse Ox Pulse Ox 03/13/24 11:12 77 17 134/83 03/13/24 10:00 79 17 138/89 97 03/13/24 07:28 71 17 125/83 98 03/13/24 07:26 70 03/13/24 06:00 64 18 137/78 98 03/13/24 03:36 98 03/13/24 03:36 67 18 132/86 98 O2 Del Method O2 Del Method 03/13/24 11:12 03/13/24 10:00 Room Air 03/13/24 07:28 Room Air 03/13/24 07:26 03/13/24 06:00 Room Air 03/13/24 03:36 Room Air 03/13/24 03:36 Room Air
--- NOTE | 2024-03-13 12:46 | Neurology Consultation ---
Date of Consultation March 13, 2024 Assessment & Plan (1) Stroke-like symptom: Recommend continued stroke work up to include the following: MRI brain without contrast Transesophageal Echocardiogram as part of young stroke workup Continue frequent neurological assessments Obtain stat CT brain without contrast for any acute neurological decline Continue to monitor/control blood pressure & blood glucose Continue to monitor telemetry closely Recommend ZioPatch at DC if no evidence of arrhythmia during inpatient monitoring Continue to monitor renal and hepatic function, keep euvolemic Recommend hypercoagulable workup Metabolic workup should include hgbA1c, fasting lipids, homocysteine, TSH, D Dimer, RPR, urinalysis Recommend DAPT for at least 3 weeks Recommend high dose statin therapy indefinitely if tolerated Ok from neurology perspective for VTE prophylaxis PT/OT/SLT to eval and treat Telehealth Consultation Telehealth Information Telehealth Information: I performed this visit using a real-time telehealth connection between my location and the patients location ([facility]). After connecting through interactive tele-video, patient was identified by name and date of and/or wristband check.Patient (or authorized healthcare medical collections representative) was informed that this was a telemedicine visit and it was being conducted confidentially over secure lines. My office door was closed and no one else was present in the room with me.Patient (or authorized healthcare medical collections representative) provided consent to proceed with the visit, expressed an understanding of privacy and security of the telemedicine visit, and gave permission to have a hospital medical collections representative in the room in order to assist with the visit and to conduct portions of the visit, as needed. I informed the patient (or authorized healthcare medical collections representative) that I reviewed their record and presented the opportunity for them to ask any questions regarding the visit today. The patient agreed to participate. History of Present Illness Reason for Consultation: TIA/CVA Requesting Physician: Dr. Lovett Attending Physician: Luz Lovett MD History of Present Illness 43yo right handed female with significant intracranial history of aneurysm/AVM and multiple invasive procedures including implanted [employer] shunt as well as seizure presented with report of acute onset left face an arm paresthesia. Has notably follow with [facility] but reportedly most recently has followed with [facility]. She has undergone emergent stroke imaging including CT brain without contrast, personally reviewed today, revealing no overt evidence of hemorrhage. CT angiographic studies of head and neck, also personally reviewed today, reveal no overt evidence of large vessel occlusion or significant/flow limiting stenosis. There is notable aneurysm clipping and stenting as well as evidence of prior craniotomy. I have performed televideo consultation. She is alert & oriented; able to answer all questions appropriately, name objects on televideo monitor, repeat phrases and perform complex/embedded commands without deficit. Reports LUE symptoms improved but still feels paresthesia distally in her finger tips and her arm still doesn't feel completely back to baseline. Neurological exam appears non lateralizing/nonfocal in terms of motor strength and coordination. Patient and significant other at bedside report having continued to follow outpatient Neurology at [facility]. They are not aware of workup or findings to explain etiology of aneurysms/headaches occurring in patients early 30s. Notably has had a stroke reportedly following a NSG procedure but have not determined complete etiology. She is able to note significant hx of smoking in remote past as well as HTN during but is unsure if she has undergone any further genetic testing. I have explained my recommendation for further "young stroke workup" as at this time she has presented with acute onset unilateral symptoms of paresthesia with some improvement as noted above. She reports taking ASA and statin since following with Neurology and will continue to follow with [facility] Neurology. Patient and significant other express gratitude for the care they are receiving. RN at bedside for televideo consultation. Discussed directly with primary/hospitalist team Dr. Lovett. Allergies Allergy/AdvReac Type Severity Reaction Status Date / Time shrimp Allergy Severe LIPS Verified 03/12/24 22:15 SWELLED/RASH ON NECK Home Medications Medication Instructions Recorded Confirmed Type amlodipine 5 mg tablet 5 mg PO DAILY 03/12/24 03/12/24 History aspirin 81 mg tablet,delayed 81 mg PO DAILY 03/12/24 03/12/24 History release atorvastatin 10 mg tablet 10 mg PO HS 03/12/24 03/12/24 History biotin 10 mg tablet 10 mg PO DAILY 03/12/24 03/12/24 History bupropion HCl 100 mg tablet,12 hr 100 mg PO DAILY 03/12/24 03/12/24 History sustained-release (Wellbutrin SR) collagen,hydrolysate 500 mg-biotin 1 cap PO DAILY 03/12/24 03/12/24 History 800 mcg-ascorbic acid 50 mg capsule etonogestrel 0.12 mg-ethinyl 1 vag ring vaginal DIRECTED 03/12/24 03/12/24 History estradiol 0.015 mg/24 hr vaginal ring (NuvaRing) hydroxyzine HCl 25 mg tablet 25 mg PO QID PRN Anxiety 03/12/24 03/12/24 History lacosamide 100 mg tablet 100 mg PO BID 03/12/24 03/12/24 History sertraline 25 mg tablet 12.5 mg PO DAILY 03/12/24 03/12/24 History Patient History Medical History (Updated 03/12/24 @ 22:35 by Shad Adair DO) Cerebral aneurysm Chronic hypertension Right internal carotid artery aneurysm History of arteriovenous malformation (AVM) Social History Smoking Status: Current every day smoker Tobacco Type: Cigarettes Second Hand Exposure: No; Do You Dip or Chew Tobacco: No; Tobacco Cessation Education Requested by Patient: No Hx Alcohol Use: Yes Alcohol type: beer Hx Substance Use: No Preferred Language: [employer] Teacher Required: No Beliefs That Will Affect Care: None Current Living Situation: Family Other Information That Helps Us Care for You: No Feels Safe at Home: Yes Safety Concerns: Feels Safe At This Time Assistive Devices: None Physical Exam Neurological Examination: Mental Status: Awake and alert. Oriented to person, place, and time. Fluency naming repetition and comprehension appear grossly intact. Affect remains appropriate. CN testing: I: Denies changes in ability to smell II:Reports no changes in visual acuity III/IV/: No evidence of gaze preference, hippus, nystagmus or roving eye movements V: Facial sensation reportedly grossly intact to light touch bilaterally VII: Facial movements appear without evidence of asymmetry VIII: Hearing appears grossly intact to loud voice bilaterally IX/X: Palate appears to elevate symmetrically XI: Shoulder shrug appears symmetric/ grossly intact bilaterally XII: Tongue protrudes midline without evidence of biting Motor exam: Strength appears grossly intact/symmetric in all extremities Sensory: Reports LUE distal paresthesia Coordination:Deferred Reflexes: Deferred Gait: Deferred Results & Data Vital Signs (Past 12 Hours) Vital Signs Pulse Pulse Resp BP BP Pulse Ox Pulse Ox 03/13/24 11:12 77 17 134/83 03/13/24 10:00 79 17 138/89 97 03/13/24 07:28 71 17 125/83 98 03/13/24 07:26 70 06/09/24 06:00 64 18 137/78 98 03/13/24 03:36 98 03/13/24 03:36 67 18 132/86 98 O2 Del Method O2 Del Method 03/13/24 11:12 03/13/24 10:00 Room Air 03/13/24 07:28 Room Air 03/13/24 07:26 03/13/24 06:00 Room Air 03/13/24 03:36 Room Air 03/13/24 03:36 Room Air Laboratory Results Abnormal lab results 03/12/24 03/12/24 03/12/24 Range/Units 21:16 21:21 21:25 [place] # (Auto) 0.75 H (0.11-0.59) K/uL POC Anion Gap 13.0 L (16-25) mmol/L Glucose 105 H (70-99(Fasting)) mg/dl POC Glucose 124 H (70-99) mg/dl POC Glucose (other) 103 H (70-99) mg/dl Diagnostic Findings Chest X-Ray 03/12/24 21:21 SINGLE VIEW CHEST CLINICAL HISTORY: Neurological deficit. Stroke like symptoms. FINDINGS: An AP, portable, upright chest radiograph is obtained. No prior studies are available for comparison at the time of dictation. The cardiomediastinal silhouette is unremarkable. The lungs and pleural spaces are clear. No pneumothorax is seen. The bony thorax is grossly intact. IMPRESSION: No active disease in the chest. ACT 112: Negative or not required by law. Electronically signed by: Wilfred Robles M.D. 03/13/2024 8:[address] 03/12/24 21:21 CR Exam(s): CT HEAD Without Contrast EXAM: CT Head Without Intravenous Contrast CLINICAL HISTORY: Reason for exam: neuro deficit, acute stroke suspected. TECHNIQUE: Axial computed tomography images of the head/brain without intravenous contrast. CTDI is 47.66 mGy and DLP is 774.27 mGy-cm. Automated exposure control was utilized for the study. A dose lowering technique was utilized adhering to the principles of ALARA. COMPARISON: No relevant prior studies available. FINDINGS: Brain: There is an approximately 6 cm area of encephalomalacia in the right parietal and occipital lobe with surrounding gliosis consistent with old infarct or surgical resection. No acute large vessel infarct or intracranial hemorrhage is seen. Ventricles: There is a left frontal ventriculostomy extending to the lateral ventricle per the ventricular system is nondilated. Bones/joints: Previous right frontotemporal parietal craniotomy. There is an aneurysm clip at the base of the brain as well as an embolization coil and a metallic stent extending into the proximal posterior cerebral artery on the right. No acute fracture. Soft tissues: Unremarkable. Sinuses: Unremarkable as visualized. No acute sinusitis. Mastoid air cells: Unremarkable as visualized. No mastoid effusion. IMPRESSION: 1. There is an approximately 6 cm area of encephalomalacia in the right parietal and occipital lobe with surrounding gliosis consistent with old infarct or surgical resection. No acute large vessel infarct or intracranial hemorrhage is seen. 2. Previous right frontotemporal parietal craniotomy. There is an aneurysm clip at the base of the brain as well as an adjacent embolization coil and a metallic stent extending into the proximal posterior cerebral artery on the right. Communications: Call Doctor Stroke Electronically signed by: Elliot Ocampo MD 03/12/24 21:48 PM Head CTA 03/12/24 21:21 CR Exam(s): CTA HEAD With Contrast IV Amt: 120ML OPITRAY 320 EXAM: CT Angiography Head With Intravenous Contrast CLINICAL HISTORY: Reason for exam: neuro deficit, acute stroke suspected. TECHNIQUE: Axial computed tomographic angiography images of the head with intravenous contrast. CTDI is 10.38 mGy and DLP is 5.19 mGy-cm. Automated exposure control was utilized for the study. A dose lowering technique was utilized adhering to the principles of ALARA. MIP reconstructed images were created and reviewed. CONTRAST: Patient received 120ML OPTIRAY 320 of IV contrast COMPARISON: No relevant prior studies available. FINDINGS: Right internal carotid artery: Embolization coils adjacent to the distal right internal carotid artery. There is an aneurysm clip adjacent to the distal right internal carotid artery and anterior communicating artery. Right anterior cerebral artery: See above. Right middle cerebral artery: Unremarkable. No occlusion or significant stenosis. No aneurysm. Right posterior cerebral artery: Metallic stent in the proximal right posterior cerebral artery. The vessel is obscured and likely chronically occluded. No aneurysm. Right vertebral artery: Unremarkable as visualized. Left internal carotid artery: No acute findings. Intracranial segment is patent with no significant stenosis. No aneurysm. Left anterior cerebral artery: Unremarkable. No occlusion or significant stenosis. No aneurysm. Left middle cerebral artery: Unremarkable. No occlusion or significant stenosis. No aneurysm. Left posterior cerebral artery: Unremarkable. No occlusion or significant stenosis. No aneurysm. Left vertebral artery: Unremarkable as visualized. Basilar artery: Unremarkable. No occlusion or significant stenosis. No aneurysm. Bones/joints: Previous right-sided craniotomy. IMPRESSION: 1. Embolization coils adjacent to the distal right internal carotid artery. No residual or recurrent aneurysm is seen. 2. There is an aneurysm clip adjacent to the distal right internal carotid artery and anterior communicating artery. 3. Previous right-sided craniotomy. 4. Metallic stent in the proximal right posterior cerebral artery. The vessel is obscured and likely chronically occluded. No acute appearing large vessel occlusion is identified. Communications: Call Doctor Stroke Electronically signed by: Elliot Ocampo MD 03/12/24 21:59 PM Neck CTA 03/12/24 21:21 CR Exam(s): CTA NECK With Contrast IV Amt: 120ML OPTIRAY 320 EXAM: CT Angiography Neck With Intravenous Contrast CLINICAL HISTORY: Reason for exam: neuro deficit, acute stroke suspected. TECHNIQUE: Routine carotid CT angiography protocol was performed with intravenous contrast. NASCET criteria using the distal ICAs for comparison were used for evaluation of stenoses. CTDI is 12.29 mGy and DLP is 433.9 mGy-cm. Automated exposure control was utilized for the study. A dose lowering technique was utilized adhering to the principles of ALARA. MIP reconstructed images were created and reviewed. CONTRAST: Patient received 120ML OPTIRAY 320 of IV contrast COMPARISON: None. FINDINGS: VASCULATURE: Right common carotid artery: Unremarkable. No occlusion or significant stenosis. No dissection. Right internal carotid artery: Unremarkable. Extracranial segment is patent with no occlusion or significant stenosis. No dissection. Right external carotid artery: Unremarkable. No occlusion. Right vertebral artery: Unremarkable. No occlusion or significant stenosis. No dissection. Left common carotid artery: Unremarkable. No occlusion or significant stenosis. No dissection. Left internal carotid artery: Trace amount of noncalcified plaque in the left carotid bulb with less than 20% stenosis. No dissection. Left external carotid artery: Unremarkable. No occlusion. Left vertebral artery: Unremarkable. No occlusion or significant stenosis. No dissection. NECK: Bones/joints: Unremarkable. No acute fracture. Soft tissues: Unremarkable. Lung apices: Clear. CAROTID STENOSIS REFERENCE USING NASCET CRITERIA: % ICA stenosis = (1 - narrowest ICA diameter/diameter of distal cervical ICA) x 100. Mild - <50% stenosis. Moderate - 50-69% stenosis. Severe - 70-94% stenosis. Near occlusion - 95-99% stenosis. Occluded - 100% stenosis. IMPRESSION: No acute findings in the arteries of the neck. Communications: Call Doctor Stroke Electronically signed by: Elliot Ocampo MD 03/12/24 21:55 PM Medications Administered Home Medications Medication Instructions Recorded Confirmed Last Taken amlodipine 5 mg tablet 5 mg PO DAILY 03/12/24 03/12/24 03/12/24 aspirin 81 mg tablet,delayed 81 mg PO DAILY 03/12/24 03/12/24 03/12/24 release atorvastatin 10 mg tablet 10 mg PO HS 03/12/24 03/12/24 03/11/24 biotin 10 mg tablet 10 mg PO DAILY 03/12/24 03/12/24 03/12/24 bupropion HCl 100 mg tablet,12 hr 100 mg PO DAILY 03/12/24 03/12/24 03/12/24 sustained-release (Wellbutrin SR) collagen,hydrolysate 500 mg-biotin 1 cap PO DAILY 03/12/24 03/12/24 03/12/24 800 mcg-ascorbic acid 50 mg capsule etonogestrel 0.12 mg-ethinyl 1 vag ring vaginal DIRECTED 03/12/24 03/12/24 Unknown estradiol 0.015 mg/24 hr vaginal ring (NuvaRing) hydroxyzine HCl 25 mg tablet 25 mg PO QID PRN Anxiety 03/12/24 03/12/24 03/11/24 lacosamide 100 mg tablet 100 mg PO BID 03/12/24 03/12/24 03/12/24 08:00 sertraline 25 mg tablet 12.5 mg PO DAILY 03/12/24 03/12/24 03/12/24 Active Medications Generic Name Dose Route Start Last Admin Trade Name Freq PRN Reason Stop Dose Admin Amlodipine Besylate 2.5 mg 03/13/24 09:00 03/13/24 09:10 Amlodipine Besylate 5 Mg Tab PO 04/12/24 08:59 2.5 mg QAM ELIZABETH Administration Aspirin 81 mg 03/13/24 09:00 03/13/24 09:07 Aspirin 81 Mg Ectab PO 04/12/24 08:59 81 mg DAILY ELIZABETH Administration Bupropion HCl 100 mg 03/13/24 09:00 03/13/24 09:10 Bupropion Sr 100 Mg Tabcr PO 04/12/24 08:59 100 mg DAILY ELIZABETH Administration Lacosamide 100 mg 03/13/24 09:00 03/13/24 09:08 Lacosamide 50 Mg Tablet PO 04/12/24 08:59 100 mg BID ELIZABETH Administration Sertraline HCl 12.5 mg 03/13/24 09:00 03/13/24 09:09 Sertraline Hcl 50 Mg Tablet PO 04/12/24 08:59 12.5 mg DAILY ELIZABETH Administration
[2024-03-13] MEDS ORDERED: STROKE PATIENT DISCHARGE STA (15:33)
--- NOTE | 2024-03-13 16:28 | Discharge Summary ---
Date of Service March 13, 2024 Admission HPI Per Admitting Provider 43-year-old female with past medical history significant for right internal carotid artery aneurysm, chronic hypertension, brain aneurysm, history of seizures, presents with strokelike symptoms. Around 7 PM when she was coming from dinner she noticed some numbness in the Left side of face and left upper extremity. Patient was stroke alert. As symptoms are improving and as has history of aneurysm she was deemed not a TNK candidate. Has mild headache and dizziness. No runny nose or sore throat. No cough. No fever. No difficulty swallowing. Denies any chest pain.Initially was short of breath but currently resolved. Currently no nausea. No abdominal pain. Normal bowel and bladder movements. Ambulating okay per patient. Hemodynamics are okay. 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 She also underwent coiling of a ruptured right posterior communicating aneurysm, flow diversion of the right P1 aneurysm and surgery for clipping of the right anterior communicating aneurysm. She also underwent angiogram and the procedure was completed with postprocedure stroke. She used to follow-up with [facility] but she moved out of the area and current following with [facility] as per patient. Patient states recently in December she had MRI scan. She wants to limit radiation exposure. Patient and her wanted to wait and see if her symptoms completely resolves .If symptoms resolves they don't want MRI scan. If symptoms persist they are okay to get MRI scan. She also has [facility] and they want to get an x-ray before getting the MRI scan. past medical history. As mentioned above past surgical history. Craniotomy for complex intracranial aneurysm. Bilateral internal carotid artery catheter placement. Cerebral AVM treated with gamma knife. S/p coiling of the right ICA aneurysm in 2014. craniotomy evaluation of subdural hematoma in 2019. 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 Spinal fluid tap for drainage and April 2020. Vertebral artery catheter placement. Social history.'s states smokes socially. Alcohol socially. Family history. Mother has hypertension. Father has diabetes. Grandmother had ovarian cancer. Maternal aunt had brain aneurysm. Admission Exam Per Admitting Provider General- Not in distress Head- atraumatic Eyes- PERRL, EOMI. ENT- oropharynx clear Neck- supple, no JVD. Lungs- clear to auscultation no wheezing or crackles. Heart- regular rate and rhythm; no murmur, no gallop. Abdomen- normal bowel sounds, soft, nontender, no distension. Extremities- no pretibial edema, no erythema seen Neuro- alert, oriented PERRL, EOMI; no facial palsy; no dysarthria; motor 5/5 bilaterally; no pronator drift, normal heel to tomlin test, sensations intact, position sense intact. Skin- warm & dry Principal Diagnosis Possible TIA/CVA Discharge Exam Constitutional + well hydrated; no acute distress Eyes PERRL, conjunctivae normal, anicteric sclerae ENMT external ear and nose normal, oropharynx normal Respiratory normal respiratory effort, lungs clear to auscultation Cardiovascular Rate/Rhythm: regular rate and regular rhythm Gastrointestinal (Abdomen) normal bowel sounds, soft, nontender, no hepatosplenomegaly Musculoskeletal no cyanosis or clubbing, extremities motor strength 5/5 Neurologic PERRL, EOMI, accommodation nl, no face palsy, no dysarthria No dysdiadochokinesis Power is normal in all extremities Sensation intact Psychiatric A+Ox3, euthymic affect Discharge Data Allergies Allergy/AdvReac Type Severity Reaction Status Date / Time shrimp Allergy Severe LIPS Verified 03/12/24 22:15 SWELLED/RASH ON NECK Consultations 03/12/24 22:34 ED Decision to Admit Stat 03/13/24 08:00 Consult Neurology Routine Ordered Studies 03/12/24 21:21 CT angio head w con Stat CT angio neck with con Stat CT head/brain wo con Stat Hospital Course (1) Stroke-like symptom: 43-year-old female with past medical history significant for right internal carotid artery aneurysm, chronic hypertension, brain aneurysm, history of seizures, presents with strokelike symptoms. Around 7 PM when she was coming from dinner she noticed some numbness in the Left side of face and left upper extremity. 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 She also underwent coiling of a ruptured right posterior communicating aneurysm, flow diversion of the right P1 aneurysm and surgery for clipping of the right anterior communicating aneurysm. She also underwent angiogram and the procedure was completed with postprocedure stroke. She used to follow-up with [facility] but she moved out of the area and current following with [facility] as per patient. Stroke alert was called on admission Was deemed not to be a TNK candidate. Has mild headache and dizziness. Initially was short of breath but currently resolved. CT head noted an approximate 6 cm area of encephalomalacia in the right parietal and occipital lobe with surrounding gliosis consistent with old infarct or surgical resection. No acute large vessel infarct or intracranial hemorrhage seen. Previous right frontotemporoparietal craniotomy. There is an aneurysmal clip at the base of the brain as well as an adjacent embolization coil and metallic stent extending into the proximal posterior cerebral artery on the right. CT angio of the head noted embolization because adjacent to the distal right internal carotid artery. No residual or recurrent aneurysm is seen. An aneurysmal clip adjacent to the distal right internal carotid artery and anterior communicating artery. Previous right-sided craniotomy. Metallic stent in the proximal right posterior cerebral artery. There vessel is obscured and likely chronically occluded. No acute appearing large vessel occlusion is identified CT angio of the neck noted no acute findings in the arteries of the neck. Possible CVA Patient was evaluated by neurologist. Discussed extensively with neurologist Dr. Alberto. Recommended considering patient neurological history, history of previous stroke and her age will need extensive evaluation including an MRI of the brain. MRI was ordered and I discussed with boiler/chiller technician Radha considering patient history of have ?programmable shunts, aneurysmal clip and coils and has not had an MRI here. thin film technician reported she discussed with Radiologist who discussed with Dr Robles and he said we can't do MRI here. After further conversation with Neurologist, Patient and ; patient and decided to be transferred to [facility] for further Neurology workup and evaluation. I called transfer center and was connected to [facility] Patient was accepted under Dr Yanes. Patient transferred to [facility] Hypertension - on amlodipine at home Seizures- on lacosamide Anxiety/depression Total Time Total Time Spent Total Time Spent (In Minutes): 60 Total Time Includes: Examination of the Patient, Discharge Planning, Medication Reconciliation and Communication With Other Providers Discharge Plan Discharge Items Patient Disposition: Transfer Acute Care Hospital Reason For Visit: STROKE-LIKE SYMPTOMS Discharge Diagnosis: Possible CVA Activity: Resume your previous activity Non-emergency contact: Primary Care Provider and Neurologist Call non-emergency contact if: you have any medication questions and your symptoms worsen Follow-up/Referrals: KRANTHI KIRKLAND [Other] Diet: Heart Healthy Addtl Attending Provider Instructions: Mrs Ramsey You presented to the hospital with left sided numbness. You are being transferred to [facility] for further evaluation and management Please ensure follow up with your Neurologist Pending Studies at Discharge: No Stand-Alone Forms: My [facility] Skilled Items Patient informed of condition?: Yes DNR: No Discharge Level of Care: Other Communicable Disease: No Discharge Prognosis: Stable Lines: Peripheral IV Urinary Catheter: No Medications and DC Order Prescriptions: Continued biotin 10 mg Tablet 10 mg PO DAILY atorvastatin 10 mg Tablet 10 mg PO HS amlodipine 5 mg Tablet 5 mg PO DAILY aspirin 81 mg Tablet,Delayed Release (Dr/Ec) 81 mg PO DAILY bupropion HCl [Wellbutrin SR] 100 mg Tablet Sustained-Release 12 Hr 100 mg PO DAILY sertraline 25 mg Tablet 12.5 mg PO DAILY etonogestrel-ethinyl estradiol [NuvaRing] 0.12-0.015 mg/24 hr Ring 1 vag ring VAGINAL DIRECTED usbdnlwc-ifqfsd-dzljfkox acid 500 mg-800 mcg- 50 mg Capsule 1 cap PO DAILY lacosamide 100 mg Tablet 100 mg PO BID hydroxyzine HCl 25 mg tablet 25 mg PO QID PRN (Reason: Anxiety) Rx Instructions: PER PT "USUALLY TAKE AT HS EVERY NIGHT". Discharge Orders: Discharge Order (Routine); Ordered 03/13/24 Ordered By: Luz Lovett Admission Data Admit Date/Time: 03/12/24 23:18 Attending Provider: Luz Lovett I. Admit Provider: John Shirley Primary Care Provider: KRANTHI KIRKLAND Other Providers: John Shirley; Loulou Vogt; Kota Luo; Loulou Fraser; Aman Lo; Андрей Finn; Piter Saravia; Bakari Foster; Gladys Lemon; Alan Rivera; Rashad Lee; Irving Rodriguez; Junior Hewitt; Alina Fragoso; Nikia Bazan; Bakari Alberto
[2024-03-13] MEDS ORDERED: ATORVASTATIN 10 MG TAB PO SCH (21:00)
[2024-03-14 08:03] LABS: Estimated Average Glucose 108 mg/dl; Hemoglobin A1C 5.4 % (4.5-5.6)
== END 2024-03-13 15:09 | disposition short-term general hospital (02) | DRG 65 ==
LOC: ED 20:58 → INTOOBSV 23:18 → EDINP 23:18